=== PATIENT | female | born 1945 | race Caucasian/White ===

== ENCOUNTER 2022-04-20 01:55 | Inpatient (IN) | payer MEDICARE ==
[2022-04-20 02:46] LABS: Hemoglobin 13.7 g/dL (12.0-15.5); Mean Corpuscular HGB CONC 34.3 g/dL (32.0-36.0); Mean Corpuscular Hemoglobin 28.4 pg (27.0-33.0); Mean Corpuscular Volume 82.6 fl (81.6-98.3); Mean Platelet Volume 9.9 fl (7.4-10.4); Platelet Count 142 10x3/uL (150-450); RBC Distribution Width 14.8 % (11.5-14.5); Red Blood Cell (RBC) Count 4.83 10x6/uL (3.90-5.03); White Blood Cell (WBC) Count 6.5 10x3/uL (3.5-10.5)
[2022-04-20 02:47] LABS: MDiff Complete? YES; Manual Diff?? YES
[2022-04-20 02:48] LABS: Bilirubin Neg (Negative); Blood, Urine 10 (Negative); Clarity Cloudy (Clear); Glucose, Urine (Dipstick) Normal (Negative); Ketone, Urine 15 mg/dL (Negative); Leukocyte 100 (Negative); Nitrite Negative (Negative); Protein, Urine (Dipstick) 15 mg/dl (Neg-Trace)
[2022-04-20 02:57] LABS: ALT (SGPT) 27 U/L (8-55); AST (SGOT) 53 U/L (5-34); Albumin 3.3 g/dL (3.4-4.8); Alkaline Phosphatase 80 U/L (40-110); Anion Gap 18 mmol/L (10-20); BUN (Urea Nitrogen) 23 mg/dL (9.8-20.1); Bilirubin, Total 2.4 mg/dL (0.2-1.2); Calc. Creatinine Clearance 0 mL/min (70-130); Calcium 10.3 mg/dL (7.8-10.44); Carbon Dioxide 20 mmol/L (23-31); Chloride 101 mmol/L (98-107); Globulin 3.1 g/dL (2.4-3.5); Glucose 108 mg/dL (83-110); Lipase 62 U/L (8-78); Potassium 3.7 mmol/L (3.5-5.1); Protein, Total 6.4 g/dL (5.8-8.1); Sodium 135 mmol/L (136-145)
[2022-04-20 02:58] LABS: Bacteria/HPF 3+ HPF (None Seen); Squamous Epithelial 0-3 HPF (0-3)
[2022-04-20 02:59] LABS: Amphetamine Not Detected (NotDetected); Barbiturates Screen Not Detected (NotDetected); Benzodiazepine Screen Not Detected (NotDetected); Cocaine Metabolite Screen Not Detected (NotDetected); Methadone Not Detected (NotDetected); Methamphetamine Not Detected (NotDetected); Opiate Screen Not Detected (NotDetected); Oxycodone Screen Not Detected (NotDetected); Phencyclidine (PCP) Not Detected (NotDetected); THC/Cannabinoid Screen Not Detected (NotDetected); Tricyclic Screen Not Detected (NotDetected)
[2022-04-20 03:03] LABS: Acetaminophen Less than 10.0 mcg/mL (10.0-30.0); Alcohol Less than 10 mg/dL (Less than 10); CK (CPK) 77 U/L (29-168); Salicylate Less than 8.0 mg/dL (15.0-30.0)
[2022-04-20 03:10] LABS: Band 1 % (5-11); Eosinophils 5 % (0-10); Lymphocytes 29 % (21-51); Monocytes 10 % (0-10); Neutrophil 54 % (42-75); Reactive Lymphocytes 1 % (0-10)
[2022-04-20 03:11] LABS: Platelet Morphology Comment Appears Adequate
[2022-04-20] MEDS ORDERED: Ibuprofen 200 MG TAB ONE (03:59)
[2022-04-20] MEDS ORDERED: Cefepime 2 GM VIAL ONE (04:24)
[2022-04-20] MEDS ORDERED: Acetaminophen 325 MG TAB PO PRN (04:58)
[2022-04-20 09:04] VITALS: BMI 38.2
[2022-04-20] MEDS: Enoxaparin Sodium 40 MG/0.4 ML SYRINGE SC SCH (09:36)
[2022-04-20] MEDS: cefTRIAXone\\ROCEPHIN 1 GM in Sodium Chloride 0.9% 100 ML IVPB SCH (09:36)
[2022-04-20] MEDS ORDERED: Nystatin Powder 15 GM BOT TOP PRN (16:23)
[2022-04-20] MEDS ORDERED: Atorvastatin Calcium 40 MG TAB PO SCH (21:00)
[2022-04-21] MEDS: Ondansetron PF 4 MG/2 ML Vial IVP PRN (00:28)
[2022-04-21] MEDS ORDERED: Pantoprazole 40 MG VIAL IVP SCH (02:00)
[2022-04-21 04:46] LABS: Anion Gap 13 mmol/L (10-20); BUN (Urea Nitrogen) 16 mg/dL (9.8-20.1); Calc. Creatinine Clearance 104 mL/min (70-130); Calcium 8.9 mg/dL (7.8-10.44); Carbon Dioxide 25 mmol/L (23-31); Cardiac Risk 5.5 (Less than 4.5); Chloride 107 mmol/L (98-107); Cholesterol 122 mg/dl (< 200 Desired); Glucose 129 mg/dL (83-110); HDL Cholesterol 22 mg/dL (>60 Neg Risk); LDL Cholesterol, Calculated 84 mg/dL; Potassium 3.5 mmol/L (3.5-5.1); Sodium 141 mmol/L (136-145); Triglycerides 79 mg/dL (Less than 150)
[2022-04-21 04:48] LABS: #Eosinphils 0.1 10x3/uL (0.0-0.5); #Monocytes 0.6 10x3/uL (0.0-1.1); #Neutrophils 3.1 10x3/uL (1.5-8.4); %Basophils 0.4 % (0.0-2.0); %Eosinophils 2.4 % (0.0-6.0); %Lymphocytes 24.4 % (18.0-47.0); %Monocytes 11.4 % (0.0-10.0); Hemoglobin 12.2 g/dL (12.0-15.5); Mean Corpuscular Hemoglobin 28.7 pg (27.0-33.0); Mean Corpuscular Volume 84.5 fl (81.6-98.3); Mean Platelet Volume 10.3 fl (7.4-10.4); Red Blood Cell (RBC) Count 4.25 10x6/uL (3.90-5.03); White Blood Cell (WBC) Count 5.1 10x3/uL (3.5-10.5)
[2022-04-21 05:10] LABS: Free T4 (Free Thyroxine) 0.9 ng/dL (0.70-1.48)
[2022-04-21 06:22] LABS: Platelet Count 123 10x3/uL (150-450)
[2022-04-21] MEDS ORDERED: Mag-Al Plus 1200 MG/1200 MG/120 MG/30 ML UDCUP PO PRN (08:11)
[2022-04-21] MEDS: Aspirin 81 mg Enteric Coated Tablet PO SCH (08:53)
[2022-04-21] MEDS: cefTRIAXone\\ROCEPHIN 1 GM in Sodium Chloride 0.9% 100 ML IVPB SCH (08:53)
[2022-04-21] MEDS: Enoxaparin Sodium 40 MG/0.4 ML SYRINGE SC SCH (08:53)
[2022-04-21 14:19] LABS: Hemoglobin A1c 4.8 % (4.0-6.0)
[2022-04-21] MEDS: HYDROcodone/Acetaminophen 5/325 mg Tablet PO PRN ×2 (16:09→23:39)
[2022-04-22] MEDS: Enoxaparin Sodium 40 MG/0.4 ML SYRINGE SC SCH (08:47)
[2022-04-22] MEDS: Aspirin 81 mg Enteric Coated Tablet PO SCH (08:47)
[2022-04-22] MEDS: cefTRIAXone\\ROCEPHIN 1 GM in Sodium Chloride 0.9% 100 ML IVPB SCH (08:54)
[2022-04-22] MEDS ORDERED: Cipro 250 MG TAB PO SCH (09:15)
[2022-04-22] MEDS: Ondansetron PF 4 MG/2 ML Vial IVP PRN (20:36)
[2022-04-22] MEDS: HYDROcodone/Acetaminophen 5/325 mg Tablet PO PRN (22:44)
[2022-04-23] MEDS: Enoxaparin Sodium 40 MG/0.4 ML SYRINGE SC SCH (09:33)
[2022-04-23] MEDS: Lisinopril 20 MG TAB PO SCH (09:34)
[2022-04-23] MEDS: Amlodipine 5 MG TAB PO SCH (09:34)
[2022-04-23] MEDS: Aspirin 81 mg Enteric Coated Tablet PO SCH (09:34)
[2022-04-23] MEDS ORDERED: Lidocaine 5% Patch TD SCH (09:45)
[2022-04-23] MEDS: Cipro 250 MG TAB PO SCH (21:39)
[2022-04-23] MEDS: Gabapentin 300 MG CAP PO SCH (21:39)
[2022-04-23] MEDS: Transdermal Patch Removal TOP SCH (21:43)
[2022-04-24 04:08] LABS: #Eosinphils 0.2 10x3/uL (0.0-0.5); #Monocytes 0.7 10x3/uL (0.0-1.1); #Neutrophils 2.6 10x3/uL (1.5-8.4); %Basophils 0.7 % (0.0-2.0); %Eosinophils 2.9 % (0.0-6.0); %Lymphocytes 34.8 % (18.0-47.0); %Monocytes 13.6 % (0.0-10.0); %Neutrophils 47.6 % (40.0-75.0); Hemoglobin 12.6 g/dL (12.0-15.5); Mean Corpuscular HGB CONC 33.5 g/dL (32.0-36.0); Mean Corpuscular Hemoglobin 28.5 pg (27.0-33.0); Mean Corpuscular Volume 85.1 fl (81.6-98.3); RBC Distribution Width 15.2 % (11.5-14.5); Red Blood Cell (RBC) Count 4.42 10x6/uL (3.90-5.03); White Blood Cell (WBC) Count 5.4 10x3/uL (3.5-10.5)
[2022-04-24 04:09] LABS: Platelet Count 116 10x3/uL (150-450)
[2022-04-24 04:11] LABS: ALT (SGPT) 21 U/L (8-55); AST (SGOT) 38 U/L (5-34); Albumin 2.6 g/dL (3.4-4.8); Alkaline Phosphatase 68 U/L (40-110); Anion Gap 13 mmol/L (10-20); BUN (Urea Nitrogen) 11 mg/dL (9.8-20.1); Bilirubin, Total 1.3 mg/dL (0.2-1.2); Calc. Creatinine Clearance 126 mL/min (70-130); Calcium 8.9 mg/dL (7.8-10.44); Carbon Dioxide 26 mmol/L (23-31); Chloride 106 mmol/L (98-107); Globulin 2.9 g/dL (2.4-3.5); Glucose 98 mg/dL (83-110); Protein, Total 5.5 g/dL (5.8-8.1); Sodium 141 mmol/L (136-145)
[2022-04-24] MEDS: Cipro 250 MG TAB PO SCH ×2 (06:25→20:27)
[2022-04-24] MEDS: Aspirin 81 mg Enteric Coated Tablet PO SCH (09:27)
[2022-04-24] MEDS: Amlodipine 5 MG TAB PO SCH (09:27)
[2022-04-24] MEDS: Lidocaine 5% Patch TD SCH (09:27)
[2022-04-24] MEDS: Gabapentin 300 MG CAP PO SCH ×2 (09:27→20:27)
[2022-04-24] MEDS: Lisinopril 20 MG TAB PO SCH (09:28)
[2022-04-24] MEDS: HYDROcodone/Acetaminophen 5/325 mg Tablet PO PRN (18:17)
[2022-04-24] MEDS: Transdermal Patch Removal TOP SCH (20:34)
[2022-04-25] MEDS: Cipro 250 MG TAB PO SCH ×2 (05:34→20:06)
[2022-04-25] MEDS: Aspirin 81 mg Enteric Coated Tablet PO SCH (09:48)
[2022-04-25] MEDS: Lisinopril 20 MG TAB PO SCH (09:48)
[2022-04-25] MEDS: Gabapentin 300 MG CAP PO SCH ×2 (09:48→20:06)
[2022-04-25] MEDS: Lidocaine 5% Patch TD SCH (09:48)
[2022-04-25] MEDS: Amlodipine 5 MG TAB PO SCH (09:48)
[2022-04-25] MEDS: Transdermal Patch Removal TOP SCH (21:37)
[2022-04-26] MEDS: HYDROcodone/Acetaminophen 5/325 mg Tablet PO PRN ×2 (04:14→22:38)
[2022-04-26 04:36] LABS: #Eosinphils 0.2 10x3/uL (0.0-0.5); #Monocytes 0.8 10x3/uL (0.0-1.1); %Basophils 0.4 % (0.0-2.0); %Eosinophils 3.4 % (0.0-6.0); %Lymphocytes 28.2 % (18.0-47.0); %Monocytes 13.9 % (0.0-10.0); %Neutrophils 53.9 % (40.0-75.0); Hemoglobin 13.3 g/dL (12.0-15.5); Mean Corpuscular HGB CONC 33.5 g/dL (32.0-36.0); Mean Corpuscular Hemoglobin 28.7 pg (27.0-33.0); Mean Corpuscular Volume 85.6 fl (81.6-98.3); Mean Platelet Volume 9.7 fl (7.4-10.4); RBC Distribution Width 15.3 % (11.5-14.5); Red Blood Cell (RBC) Count 4.64 10x6/uL (3.90-5.03); White Blood Cell (WBC) Count 5.6 10x3/uL (3.5-10.5)
[2022-04-26 04:37] LABS: Platelet Count 126 10x3/uL (150-450)
[2022-04-26] MEDS: Gabapentin 300 MG CAP PO SCH ×2 (08:39→20:20)
[2022-04-26] MEDS: Lidocaine 5% Patch TD SCH ×2 (08:39→19:38)
[2022-04-26] MEDS: Aspirin 81 mg Enteric Coated Tablet PO SCH (08:39)
[2022-04-26] MEDS: Lisinopril 20 MG TAB PO SCH (08:39)
[2022-04-26] MEDS: Amlodipine 5 MG TAB PO SCH (08:41)
[2022-04-26] MEDS: Transdermal Patch Removal TOP SCH (22:00)
[2022-04-27] MEDS: Gabapentin 300 MG CAP PO SCH ×2 (08:23→21:16)
[2022-04-27] MEDS: Aspirin 81 mg Enteric Coated Tablet PO SCH (08:24)
[2022-04-27] MEDS: Amlodipine 5 MG TAB PO SCH (08:24)
[2022-04-27] MEDS: Lisinopril 20 MG TAB PO SCH (08:24)
[2022-04-27] MEDS: Lidocaine 5% Patch TD SCH (08:29)
[2022-04-27] MEDS ORDERED: predniSONE 50 MG TAB PO SCH ×4 (17:00→23:00)
[2022-04-27 18:32] LABS: Troponin I Less than 0.010 ng/mL (< 0.028)
[2022-04-27] MEDS: Enoxaparin Sodium 100 MG/ML SYRINGE SC SCH (21:14)
[2022-04-27] MEDS ORDERED: predniSONE 20 MG TAB PO SCH (23:00)
[2022-04-27] MEDS: HYDROcodone/Acetaminophen 5/325 mg Tablet PO PRN (23:14)
[2022-04-27] MEDS: Transdermal Patch Removal TOP SCH (23:19)
[2022-04-28] MEDS: predniSONE 50 MG TAB PO SCH ×2 (01:35→02:31)
[2022-04-28] MEDS ORDERED: Morphine 2 MG/ML VIAL SLOW IVP SCH (02:00)
[2022-04-28] MEDS: HYDROcodone/Acetaminophen 5/325 mg Tablet PO PRN ×2 (03:37→21:10)
[2022-04-28] MEDS ORDERED: diphenhydrAMINE 50 MG CAP PO SCH ×2 (05:00→07:00)
[2022-04-28] MEDS ORDERED: predniSONE 50 MG TAB PO SCH ×2 (05:00→07:00)
[2022-04-28 09:44] LABS: #Monocytes 0.2 10x3/uL (0.0-1.1); #Neutrophils 3.3 10x3/uL (1.5-8.4); %Basophils 0.2 % (0.0-2.0); %Lymphocytes 17.9 % (18.0-47.0); %Monocytes 4.2 % (0.0-10.0); %Neutrophils 77.5 % (40.0-75.0); Hemoglobin 13.7 g/dL (12.0-15.5); Mean Corpuscular HGB CONC 33.1 g/dL (32.0-36.0); Mean Corpuscular Hemoglobin 28.6 pg (27.0-33.0); Mean Corpuscular Volume 86.4 fl (81.6-98.3); Mean Platelet Volume 9.7 fl (7.4-10.4); Platelet Count 124 10x3/uL (150-450); RBC Distribution Width 14.6 % (11.5-14.5); Red Blood Cell (RBC) Count 4.79 10x6/uL (3.90-5.03); White Blood Cell (WBC) Count 4.2 10x3/uL (3.5-10.5)
[2022-04-28 10:06] LABS: INR-International Normal Ratio 1.2; PTT 36.5 sec (22.0-33.0); Prothrombin Time 12.4 sec (9.5-12.1)
[2022-04-28 10:08] LABS: ALT (SGPT) 25 U/L (8-55); AST (SGOT) 34 U/L (5-34); Albumin 2.9 g/dL (3.4-4.8); Alkaline Phosphatase 73 U/L (40-110); Anion Gap 10 mmol/L (10-20); BUN (Urea Nitrogen) 15 mg/dL (9.8-20.1); Bilirubin, Total 1.2 mg/dL (0.2-1.2); Calc. Creatinine Clearance 114 mL/min (70-130); Calcium 9.6 mg/dL (7.8-10.44); Carbon Dioxide 24 mmol/L (23-31); Chloride 104 mmol/L (98-107); Estimated GFR 91; Globulin 3.5 g/dL (2.4-3.5); Glucose 212 mg/dL (83-110); Magnesium 1.8 mg/dL (1.6-2.6); Potassium 4.2 mmol/L (3.5-5.1); Protein, Total 6.4 g/dL (5.8-8.1); Sodium 134 mmol/L (136-145)
[2022-04-28] MEDS: Amlodipine 5 MG TAB PO SCH (10:08)
[2022-04-28] MEDS: Lidocaine 5% Patch TD SCH (10:09)
[2022-04-28] MEDS: Lisinopril 20 MG TAB PO SCH (10:09)
[2022-04-28] MEDS: Aspirin 81 mg Enteric Coated Tablet PO SCH (10:09)
[2022-04-28] MEDS: Gabapentin 300 MG CAP PO SCH ×2 (10:09→21:13)
[2022-04-28] MEDS: Enoxaparin Sodium 100 MG/ML SYRINGE SC SCH (10:11)
[2022-04-28] MEDS ORDERED: Furosemide 40 MG/4 ML VIAL SLOW IVP SCH (12:00)
[2022-04-28] MEDS ORDERED: Iopamidol 370 76% 100 ML VIAL ONE (12:59)
[2022-04-28 13:05] LABS: Hemoglobin A1c 4.9 % (4.0-6.0)
[2022-04-28] MEDS: Transdermal Patch Removal TOP SCH (21:18)
[2022-04-29 05:54] LABS: Hemoglobin 12.3 g/dL (12.0-15.5); Mean Corpuscular HGB CONC 33.2 g/dL (32.0-36.0); Mean Corpuscular Hemoglobin 28.5 pg (27.0-33.0); Mean Corpuscular Volume 85.9 fl (81.6-98.3); Mean Platelet Volume 9.9 fl (7.4-10.4); RBC Distribution Width 15.1 % (11.5-14.5); Red Blood Cell (RBC) Count 4.32 10x6/uL (3.90-5.03); White Blood Cell (WBC) Count 7.5 10x3/uL (3.5-10.5)
[2022-04-29 05:56] LABS: Platelet Count 144 10x3/uL (150-450)
[2022-04-29 06:02] LABS: ALT (SGPT) 19 U/L (8-55); AST (SGOT) 29 U/L (5-34); Albumin 2.4 g/dL (3.4-4.8); Alkaline Phosphatase 62 U/L (40-110); Anion Gap 12 mmol/L (10-20); BUN (Urea Nitrogen) 18 mg/dL (9.8-20.1); Bilirubin, Direct 0.4 mg/dL (0.1-0.3); Bilirubin, Total 0.6 mg/dL (0.2-1.2); Calc. Creatinine Clearance 107 mL/min (70-130); Calcium 8.9 mg/dL (7.8-10.44); Carbon Dioxide 26 mmol/L (23-31); Chloride 107 mmol/L (98-107); Cholesterol 116 mg/dl (< 200 Desired); Estimated GFR 90; Glucose 129 mg/dL (83-110); HDL Cholesterol 29 mg/dL (>60 Neg Risk); LDL Cholesterol, Calculated 75 mg/dL; Magnesium 1.8 mg/dL (1.6-2.6); Potassium 4.2 mmol/L (3.5-5.1); Protein, Total 5.3 g/dL (5.8-8.1); Sodium 141 mmol/L (136-145); Triglycerides 60 mg/dL (Less than 150)
[2022-04-29 06:19] LABS: MDiff Complete? YES
[2022-04-29 06:22] LABS: Band 1 % (5-11); Eosinophils 1 % (0-10); Lymphocytes 19 % (21-51); Monocytes 12 % (0-10); Neutrophil 66 % (42-75); Reactive Lymphocytes 1 % (0-10)
[2022-04-29 06:23] LABS: Platelet Morphology Comment Appears Adequate; RBC Morphology Normal
[2022-04-29 08:04] VITALS: TEMP 98.1
[2022-04-29] MEDS ORDERED: Enoxaparin Sodium 40 MG/0.4 ML SYRINGE SC SCH (09:00)
[2022-04-29] MEDS ORDERED: Furosemide 40 MG/4 ML VIAL SLOW IVP SCH (09:00)
[2022-04-29] MEDS ORDERED: Azithromycin 250 MG TAB PO SCH (09:30)
[2022-04-29] MEDS: Gabapentin 300 MG CAP PO SCH (10:18)
[2022-04-29] MEDS: Lisinopril 20 MG TAB PO SCH (10:18)
[2022-04-29] MEDS: Aspirin 81 mg Enteric Coated Tablet PO SCH (10:18)
[2022-04-29] MEDS: Amlodipine 5 MG TAB PO SCH (10:19)
[2022-04-29] MEDS: Lidocaine 5% Patch TD SCH (10:19)
[2022-04-29 11:56] VITALS: BP 113/51
[2022-04-30] MEDS ORDERED: Furosemide 40 MG TAB PO SCH (07:30)
== END 2022-04-29 13:45 | DRG 689 ==
LOC: CSHERS 01:55 → SUATTDRO 01:55 → UNDOADMIN 04:15 → CSHTELE 04:15 → OBSVTOIN 04:15 → INTOOBSV 04:15 → UNDOADMIN 08:51 → CSHTELE 08:51 → UNDODISIN 04-22 17:05
PROVIDERS: ADMIT Family Medicine; ATTEND Family Medicine
DX: N39.0 Urinary tract infection, site not specified (principal); G93.41 Metabolic encephalopathy; J96.01 Acute respiratory failure with hypoxia; J81.1 Chronic pulmonary edema; E87.1 Hypo-osmolality and hyponatremia; I10 Essential (primary) hypertension; M19.90 Unspecified osteoarthritis, unspecified site; E03.9 Hypothyroidism, unspecified; F17.210 Nicotine dependence, cigarettes, uncomplicated; E66.9 Obesity, unspecified; R53.81 Other malaise; Z20.822 Contact with and (suspected) exposure to COVID-19; B96.20 Unspecified Escherichia coli [E. coli] as the cause of diseases classified elsewhere; K70.30 Alcoholic cirrhosis of liver without ascites; F03.90 Unspecified dementia, unspecified severity, without behavioral disturbance, psychotic disturbance, mood disturbance, and anxiety; D69.6 Thrombocytopenia, unspecified; Z90.710 Acquired absence of both cervix and uterus; Z88.0 Allergy status to penicillin; Z88.8 Allergy status to other drugs, medicaments and biological substances; Z68.38 Body mass index [BMI] 38.0-38.9, adult; Z90.49 Acquired absence of other specified parts of digestive tract; Z88.5 Allergy status to narcotic agent
CPT/HCPCS: 36415; 36416; 51701; 70450; 70551; 71045; 71275; 72020; 72100; 80048; 80053; 80061; 80076; 80306; 80307; 81003; 81015; 82140; 82550; 82607; 82746; 83036; 83690; 83735; 83880; 84439; 84443; 84481; 84484; 85025; 85379; 85610; 85730; 86850; 86900; 86901; 87040; 87077; 87086; 87186; 93005; 93010; 93306; 93970; 94760; 96365; 96372; 96375; 96376; C9113; G0378; J0692; J0696; J1650; J1940; J2405; J3490; J7512; Q9967; U0003; U0005

== ENCOUNTER 2022-05-12 07:16 | Inpatient (IN) | payer MEDICARE ==
[2022-05-12 08:29] LABS: SARS-CoV-2 NAA Rapid Test DETECTED (NotDetected)
[2022-05-12] MEDS ORDERED: Cefepime 2 GM VIAL ONE (08:29)
[2022-05-12 08:30] LABS: INR-International Normal Ratio 1.3; PTT 26.3 sec (22.0-33.0)
[2022-05-12 08:36] LABS: ALT (SGPT) 50 U/L (8-55); AST (SGOT) 84 U/L (5-34); Albumin 3.3 g/dL (3.4-4.8); Alkaline Phosphatase 96 U/L (40-110); Anion Gap 19 mmol/L (10-20); BUN (Urea Nitrogen) 35 mg/dL (9.8-20.1); Bilirubin, Total 3.3 mg/dL (0.2-1.2); CK (CPK) 117 U/L (29-168); Calc. Creatinine Clearance 0 mL/min (70-130); Calcium 9.7 mg/dL (7.8-10.44); Carbon Dioxide 24 mmol/L (23-31); Chloride 108 mmol/L (98-107); Estimated GFR 65; Globulin 4.3 g/dL (2.4-3.5); Glucose 119 mg/dL (83-110); Lipase 114 U/L (8-78); Protein, Total 7.6 g/dL (5.8-8.1); Sodium 147 mmol/L (136-145)
[2022-05-12 08:50] LABS: #Monocytes 1.2 10x3/uL (0.0-1.1); %Basophils 0.3 % (0.0-2.0); %Eosinophils 0.3 % (0.0-6.0); %Lymphocytes 12.1 % (18.0-47.0); %Neutrophils 73.5 % (40.0-75.0); Hemoglobin 13.6 g/dL (12.0-15.5); Mean Corpuscular HGB CONC 33.2 g/dL (32.0-36.0); Mean Corpuscular Volume 84.4 fl (81.6-98.3); Mean Platelet Volume 10.2 fl (7.4-10.4); Platelet Count 251 10x3/uL (150-450); RBC Distribution Width 14.8 % (11.5-14.5); Red Blood Cell (RBC) Count 4.86 10x6/uL (3.90-5.03); White Blood Cell (WBC) Count 9.5 10x3/uL (3.5-10.5)
[2022-05-12 09:14] LABS: Bilirubin Neg (Negative); Blood, Urine 150 (Negative); Clarity Cloudy (Clear); Glucose, Urine (Dipstick) Normal (Negative); Ketone, Urine 15 mg/dL (Negative); Leukocyte 500 (Negative); Nitrite Negative (Negative); Protein, Urine (Dipstick) 30 mg/dl (Neg-Trace)
[2022-05-12] MEDS ORDERED: Dexamethasone 10 MG/ML VIAL ONE (09:29)
[2022-05-12 09:30] LABS: Bacteria/HPF 2+ HPF (None Seen); Transitional Epithelial 0-3 HPF (None Seen); WBC/HPF 21-50 HPF (0-3)
[2022-05-12] MEDS ORDERED: Benzonatate 100 MG CAP PO PRN (10:44)
[2022-05-12] MEDS ORDERED: Ondansetron ODT 4 MG TAB PO PRN (10:44)
[2022-05-12] MEDS ORDERED: Acetaminophen 650 MG Suppository PR PRN (10:44)
[2022-05-12] MEDS ORDERED: Guaifenesin DM 100-10/5 ML UDCUP PO PRN (10:44)
[2022-05-12] MEDS ORDERED: HumaLOG 300 UNITS/3 ML VIAL SC PRN (10:53)
[2022-05-12] MEDS ORDERED: Dextrose 50% Abboject 50 ML SYRINGE SLOW IVP PRN (10:53)
[2022-05-12] MEDS ORDERED: Dextrose 5% in Water 1,000 ML IV PRN (10:53)
[2022-05-12] MEDS ORDERED: Ipratropium Oral Inhaler INH PRN (10:56)
[2022-05-12] MEDS ORDERED: VANCOMYCIN 1.75 GM/350 ML BAG 1.75 GM in Premix Bag 1 BAG IVPB SCH (11:00)
[2022-05-12 11:55] LABS: Lactic Acid 1.8 mmol/L (0.5-2.2)
[2022-05-12] MEDS ORDERED: Albuterol 200 PUFF (6.7GM INHALER) INH SCH (13:00)
[2022-05-12] MEDS: Lactated Ringer's 1,000 ML IV SCH ×3 (14:00→19:30)
[2022-05-12] MEDS: Nicotine 14 MG PATCH TD SCH (14:06)
[2022-05-12 14:09] LABS: Lactic Acid 2.1 mmol/L (0.5-2.2)
[2022-05-12] MEDS ORDERED: Ventolin HFA Inhaler 60 PUFF INHALER INH SCH (14:30)
[2022-05-12 18:14] LABS: Sodium 142 mmol/L (136-145)
[2022-05-12] MEDS: Ventolin HFA Inhaler 60 PUFF INHALER INH SCH (19:15)
[2022-05-12 20:32] LABS: Lactic Acid 4.9 mmol/L (0.5-2.2)
[2022-05-12] MEDS ORDERED: Sodium Chloride 0.9% 1,000 ML IV SCH (22:30)
[2022-05-13] MEDS: Lactated Ringer's 1,000 ML IV SCH ×2 (00:15→13:00)
[2022-05-13] MEDS ORDERED: Lactated Ringer's 1,000 ML IV SCH (01:00)
[2022-05-13] MEDS ORDERED: Vancomycin 1.5 GRAM/300 ML BAG IVPB SCH (01:00)
[2022-05-13] MEDS: Cefepime 2 GM in Sodium Chloride 0.9% 100 ML IVPB SCH ×2 (01:17→12:57)
[2022-05-13 01:22] LABS: #Monocytes 0.8 10x3/uL (0.0-1.1); #Neutrophils 5.1 10x3/uL (1.5-8.4); %Basophils 0.1 % (0.0-2.0); %Lymphocytes 11.2 % (18.0-47.0); %Monocytes 11.4 % (0.0-10.0); %Neutrophils 75.4 % (40.0-75.0); Hemoglobin 13.2 g/dL (12.0-15.5); Mean Corpuscular HGB CONC 33.4 g/dL (32.0-36.0); Mean Corpuscular Hemoglobin 27.7 pg (27.0-33.0); Mean Platelet Volume 9.7 fl (7.4-10.4); Platelet Count 198 10x3/uL (150-450); RBC Distribution Width 14.9 % (11.5-14.5); Red Blood Cell (RBC) Count 4.76 10x6/uL (3.90-5.03); White Blood Cell (WBC) Count 6.8 10x3/uL (3.5-10.5)
[2022-05-13 01:36] LABS: ALT (SGPT) 44 U/L (8-55); AST (SGOT) 65 U/L (5-34); Alkaline Phosphatase 92 U/L (40-110); Anion Gap 16 mmol/L (10-20); BUN (Urea Nitrogen) 24 mg/dL (9.8-20.1); Bilirubin, Total 2.9 mg/dL (0.2-1.2); Calc. Creatinine Clearance 91 mL/min (70-130); Calcium 9.1 mg/dL (7.8-10.44); Carbon Dioxide 21 mmol/L (23-31); Chloride 109 mmol/L (98-107); Estimated GFR 85; Globulin 3.6 g/dL (2.4-3.5); Glucose 126 mg/dL (83-110); Magnesium 1.6 mg/dL (1.6-2.6); Protein, Total 6.6 g/dL (5.8-8.1); Sodium 143 mmol/L (136-145)
[2022-05-13] MEDS ORDERED: Ziprasidone 20 MG VIAL ONE (01:57)
[2022-05-13 01:58] LABS: Potassium 2.9 mmol/L (3.5-5.1)
[2022-05-13] MEDS ORDERED: Sterile Water 10 ML ONE (02:02)
[2022-05-13] MEDS: VANCOMYCIN 1.75 GM/350 ML BAG 1.75 GM in Premix Bag 1 BAG IVPB SCH (02:05)
[2022-05-13] MEDS: Ventolin HFA Inhaler 60 PUFF INHALER INH SCH ×4 (02:20→19:06)
[2022-05-13] MEDS ORDERED: Magnesium Sulfate 1 GM/2 ML VIAL IM SCH (03:00)
[2022-05-13 03:04] LABS: Lactic Acid 3.6 mmol/L (0.5-2.2)
[2022-05-13] MEDS ORDERED: diphenhydrAMINE 50 MG/ML VIAL IVP SCH (03:30)
[2022-05-13] MEDS ORDERED: Famotidine/PF 20 mg/2ml Vial SLOW IVP SCH (03:30)
[2022-05-13] MEDS: Potassium Chloride 20 MEQ in Premix Bag 1 BAG IVPB SCH ×3 (03:35→11:30)
[2022-05-13] MEDS: methylPREDNISolone Sod Succ 40 MG VIAL IVP PRN ×2 (03:36→07:39)
[2022-05-13 05:52] LABS: Sodium 146 mmol/L (136-145)
[2022-05-13] MEDS ORDERED: Dexamethasone 4 MG TAB PO SCH (08:00)
[2022-05-13] MEDS: Enoxaparin Sodium 40 MG/0.4 ML SYRINGE SC SCH (11:30)
[2022-05-13] MEDS: Zinc Sulfate 220 MG CAP PO SCH (11:30)
[2022-05-13] MEDS: Cholecalciferol (Vitamin D3) 400 UNITS TAB PO SCH (11:31)
[2022-05-13] MEDS: Ascorbic Acid 500 mg Chewable Tablet PO SCH (11:31)
[2022-05-13] MEDS: Nicotine 14 MG PATCH TD SCH (11:33)
[2022-05-13 12:17] LABS: Anion Gap 14 mmol/L (10-20); BUN (Urea Nitrogen) 12 mg/dL (9.8-20.1); Calc. Creatinine Clearance 100 mL/min (70-130); Calcium 6.4 mg/dL (7.8-10.44); Carbon Dioxide 23 mmol/L (23-31); Chloride 109 mmol/L (98-107); Estimated GFR 90; Glucose 125 mg/dL (83-110); Potassium 3.5 mmol/L (3.5-5.1); Sodium 142 mmol/L (136-145)
[2022-05-13] MEDS ORDERED: Iopamidol 300 61% 100 ML VIAL FS ONE (13:52)
[2022-05-13] MEDS ORDERED: Iopamidol 370 76% 100 ML VIAL ONE (13:55)
[2022-05-13 15:06] VITALS: BMI 35.0
[2022-05-13] MEDS: Propranolol 10 MG TAB PO SCH (20:49)
[2022-05-14] MEDS: Cefepime 2 GM in Sodium Chloride 0.9% 100 ML IVPB SCH ×2 (00:32→12:14)
[2022-05-14] MEDS: Ventolin HFA Inhaler 60 PUFF INHALER INH SCH ×4 (00:38→18:45)
[2022-05-14 01:15] LABS: Vancomycin, Trough 13.8 ug/mL
[2022-05-14] MEDS ORDERED: VANCOMYCIN 2 GRAM/400 ML BAG 2 GM in Premix Bag 1 BAG IVPB SCH (02:30)
[2022-05-14 03:33] LABS: Hemoglobin 12.8 g/dL (12.0-15.5); Mean Corpuscular HGB CONC 33.3 g/dL (32.0-36.0); Mean Corpuscular Hemoglobin 28.1 pg (27.0-33.0); Mean Corpuscular Volume 84.2 fl (81.6-98.3); Mean Platelet Volume 9.7 fl (7.4-10.4); Platelet Count 189 10x3/uL (150-450); RBC Distribution Width 15.8 % (11.5-14.5); Red Blood Cell (RBC) Count 4.56 10x6/uL (3.90-5.03)
[2022-05-14 03:47] LABS: Lactic Acid 2.1 mmol/L (0.5-2.2)
[2022-05-14 04:05] LABS: Anion Gap 14 mmol/L (10-20); BUN (Urea Nitrogen) 18 mg/dL (9.8-20.1); Calc. Creatinine Clearance 89 mL/min (70-130); Carbon Dioxide 21 mmol/L (23-31); Chloride 114 mmol/L (98-107); Estimated GFR 82; Glucose 117 mg/dL (83-110); Magnesium 1.8 mg/dL (1.6-2.6); Potassium 3.5 mmol/L (3.5-5.1); Sodium 145 mmol/L (136-145)
[2022-05-14] MEDS: Lactated Ringer's 1,000 ML IV SCH ×2 (05:00→05:47)
[2022-05-14] MEDS: Propranolol 10 MG TAB PO SCH ×3 (05:46→20:41)
[2022-05-14] MEDS: VANCOMYCIN 1.75 GM/350 ML BAG 1.75 GM in Premix Bag 1 BAG IVPB SCH (06:45)
[2022-05-14] MEDS: Ascorbic Acid 500 mg Chewable Tablet PO SCH (08:30)
[2022-05-14] MEDS: Zinc Sulfate 220 MG CAP PO SCH (08:30)
[2022-05-14] MEDS: Enoxaparin Sodium 40 MG/0.4 ML SYRINGE SC SCH (08:30)
[2022-05-14] MEDS: Cholecalciferol (Vitamin D3) 400 UNITS TAB PO SCH (08:31)
[2022-05-14] MEDS: Aspirin 81 mg Enteric Coated Tablet PO SCH (08:31)
[2022-05-14] MEDS: Dexamethasone 4 mg/ml Vial SLOW IVP SCH (08:32)
[2022-05-14] MEDS: Nicotine 14 MG PATCH TD SCH (10:02)
[2022-05-15] MEDS: Cefepime 2 GM in Sodium Chloride 0.9% 100 ML IVPB SCH (00:16)
[2022-05-15] MEDS: Ventolin HFA Inhaler 60 PUFF INHALER INH SCH ×4 (01:00→19:00)
[2022-05-15] MEDS ORDERED: Vancomycin HCl 1 GM in Sodium Chloride 0.9% 250 ML 250 ML IVPB SCH (02:00)
[2022-05-15] MEDS: Lactated Ringer's 1,000 ML IV SCH ×2 (06:57→22:56)
[2022-05-15] MEDS: Propranolol 10 MG TAB PO SCH ×3 (07:09→22:57)
[2022-05-15] MEDS: Aspirin 81 mg Enteric Coated Tablet PO SCH (10:36)
[2022-05-15] MEDS: Cholecalciferol (Vitamin D3) 400 UNITS TAB PO SCH (10:36)
[2022-05-15] MEDS: Zinc Sulfate 220 MG CAP PO SCH (10:36)
[2022-05-15] MEDS: Enoxaparin Sodium 40 MG/0.4 ML SYRINGE SC SCH (10:36)
[2022-05-15] MEDS: Ascorbic Acid 500 mg Chewable Tablet PO SCH (10:36)
[2022-05-15] MEDS: Dexamethasone 4 mg/ml Vial SLOW IVP SCH (10:37)
[2022-05-15] MEDS: Nicotine 14 MG PATCH TD SCH (10:47)
[2022-05-16] MEDS: Ventolin HFA Inhaler 60 PUFF INHALER INH SCH ×2 (01:00→11:18)
[2022-05-16 04:22] LABS: Anion Gap 12 mmol/L (10-20); BUN (Urea Nitrogen) 21 mg/dL (9.8-20.1); Calc. Creatinine Clearance 100 mL/min (70-130); Calcium 8.9 mg/dL (7.8-10.44); Carbon Dioxide 25 mmol/L (23-31); Chloride 111 mmol/L (98-107); Estimated GFR 90; Glucose 111 mg/dL (83-110); Potassium 3.4 mmol/L (3.5-5.1); Sodium 145 mmol/L (136-145)
[2022-05-16] MEDS ORDERED: Potassium Chloride 20 MEQ TAB PO SCH ×2 (05:30→08:00)
[2022-05-16] MEDS: Propranolol 10 MG TAB PO SCH ×3 (05:31→22:26)
[2022-05-16] MEDS: Lactated Ringer's 1,000 ML IV SCH ×2 (05:31→21:46)
[2022-05-16 06:16] LABS: Magnesium 1.7 mg/dL (1.6-2.6)
[2022-05-16] MEDS: hydrALAZINE 20 MG/ML VIAL SLOW IVP PRN (06:42)
[2022-05-16] MEDS ORDERED: Magnesium Oxide 400 MG TAB PO SCH (08:00)
[2022-05-16] MEDS: Enoxaparin Sodium 40 MG/0.4 ML SYRINGE SC SCH (09:42)
[2022-05-16] MEDS: Lisinopril 20 MG TAB PO SCH (09:44)
[2022-05-16] MEDS: Ascorbic Acid 500 mg Chewable Tablet PO SCH (09:44)
[2022-05-16] MEDS: Cholecalciferol (Vitamin D3) 400 UNITS TAB PO SCH (09:45)
[2022-05-16] MEDS: Aspirin 81 mg Enteric Coated Tablet PO SCH (09:46)
[2022-05-16] MEDS: Furosemide 40 MG TAB PO SCH (09:46)
[2022-05-16] MEDS: Amlodipine 5 MG TAB PO SCH (09:50)
[2022-05-16] MEDS: Zinc Sulfate 220 MG CAP PO SCH (09:50)
[2022-05-16] MEDS: Dexamethasone 4 mg/ml Vial SLOW IVP SCH (09:50)
[2022-05-16] MEDS: Nicotine 14 MG PATCH TD SCH (10:50)
[2022-05-16] MEDS: HumaLOG 300 UNITS/3 ML VIAL SC PRN (16:29)
[2022-05-17] MEDS: hydrALAZINE 20 MG/ML VIAL SLOW IVP PRN (00:22)
[2022-05-17 04:02] LABS: Anion Gap 12 mmol/L (10-20); BUN (Urea Nitrogen) 19 mg/dL (9.8-20.1); Calc. Creatinine Clearance 106 mL/min (70-130); Carbon Dioxide 25 mmol/L (23-31); Chloride 112 mmol/L (98-107); Estimated GFR 91; Glucose 140 mg/dL (83-110); Potassium 3.7 mmol/L (3.5-5.1); Sodium 145 mmol/L (136-145)
[2022-05-17] MEDS: Propranolol 10 MG TAB PO SCH ×2 (06:54→14:00)
[2022-05-17] MEDS: Cholecalciferol (Vitamin D3) 400 UNITS TAB PO SCH (11:07)
[2022-05-17] MEDS: Ascorbic Acid 500 mg Chewable Tablet PO SCH (11:07)
[2022-05-17] MEDS: Dexamethasone 4 mg/ml Vial SLOW IVP SCH (11:07)
[2022-05-17] MEDS: Furosemide 40 MG TAB PO SCH (11:07)
[2022-05-17] MEDS: Lisinopril 20 MG TAB PO SCH (11:08)
[2022-05-17] MEDS: Amlodipine 5 MG TAB PO SCH (11:08)
[2022-05-17] MEDS: Zinc Sulfate 220 MG CAP PO SCH (11:08)
[2022-05-17] MEDS: Enoxaparin Sodium 40 MG/0.4 ML SYRINGE SC SCH (11:08)
[2022-05-17] MEDS: Aspirin 81 mg Enteric Coated Tablet PO SCH (11:08)
[2022-05-17] MEDS: Nicotine 14 MG PATCH TD SCH (11:11)
[2022-05-17 13:19] LABS: Mean Corpuscular HGB CONC 33.7 g/dL (32.0-36.0); Mean Corpuscular Hemoglobin 27.9 pg (27.0-33.0); Mean Corpuscular Volume 82.7 fl (81.6-98.3); Mean Platelet Volume 9.6 fl (7.4-10.4); Platelet Count 149 10x3/uL (150-450); RBC Distribution Width 17.2 % (11.5-14.5); Red Blood Cell (RBC) Count 5.38 10x6/uL (3.90-5.03); White Blood Cell (WBC) Count 8.2 10x3/uL (3.5-10.5)
[2022-05-18] MEDS: Propranolol 10 MG TAB PO SCH ×3 (00:02→14:00)
[2022-05-18] MEDS: hydrALAZINE 20 MG/ML VIAL SLOW IVP PRN (08:58)
[2022-05-18] MEDS: Furosemide 40 MG TAB PO SCH (10:00)
[2022-05-18] MEDS: Cholecalciferol (Vitamin D3) 400 UNITS TAB PO SCH (10:00)
[2022-05-18] MEDS: Zinc Sulfate 220 MG CAP PO SCH (10:00)
[2022-05-18] MEDS: Lisinopril 20 MG TAB PO SCH (10:00)
[2022-05-18] MEDS: Amlodipine 5 MG TAB PO SCH (10:00)
[2022-05-18] MEDS: Aspirin 81 mg Enteric Coated Tablet PO SCH (10:00)
[2022-05-18] MEDS: Ascorbic Acid 500 mg Chewable Tablet PO SCH (10:00)
[2022-05-18] MEDS: Enalaprilat Dihydrate 1.25 MG/ML VIAL SLOW IVP SCH ×3 (12:15→18:30)
[2022-05-18] MEDS ORDERED: hydrALAZINE 20 MG/ML VIAL SLOW IVP PRN (12:35)
[2022-05-18] MEDS: Enoxaparin Sodium 40 MG/0.4 ML SYRINGE SC SCH (15:19)
[2022-05-18] MEDS: Dextrose 5 %-0.45 % NaCl 1,000 ML IV SCH (15:20)
[2022-05-18] MEDS: Nicotine 14 MG PATCH TD SCH (15:20)
[2022-05-19] MEDS: Rifaximin 550 MG TAB PO SCH ×3 (00:08→23:12)
[2022-05-19] MEDS: Propranolol 10 MG TAB PO SCH ×4 (00:08→23:12)
[2022-05-19] MEDS: Enalaprilat Dihydrate 1.25 MG/ML VIAL SLOW IVP SCH ×2 (05:58→05:59)
[2022-05-19] MEDS: Dextrose 5 %-0.45 % NaCl 1,000 ML IV SCH ×2 (06:00→17:24)
[2022-05-19 06:48] LABS: ALT (SGPT) 70 U/L (8-55); AST (SGOT) 61 U/L (5-34); Albumin 2.4 g/dL (3.4-4.8); Alkaline Phosphatase 101 U/L (40-110); Anion Gap 10 mmol/L (10-20); BUN (Urea Nitrogen) 30 mg/dL (9.8-20.1); Bilirubin, Total 3.4 mg/dL (0.2-1.2); Calc. Creatinine Clearance 101 mL/min (70-130); Calcium 8.4 mg/dL (7.8-10.44); Carbon Dioxide 25 mmol/L (23-31); Chloride 116 mmol/L (98-107); Estimated GFR 90; Glucose 150 mg/dL (83-110); Platelet Count 123 10x3/uL (150-450); Potassium 3.4 mmol/L (3.5-5.1); Protein, Total 5.4 g/dL (5.8-8.1); Sodium 148 mmol/L (136-145)
[2022-05-19 06:58] LABS: #Monocytes 0.9 10x3/uL (0.0-1.1); #Neutrophils 5.4 10x3/uL (1.5-8.4); %Basophils 0.1 % (0.0-2.0); %Eosinophils 0.1 % (0.0-6.0); %Lymphocytes 15.5 % (18.0-47.0); %Monocytes 12.1 % (0.0-10.0); %Neutrophils 70.8 % (40.0-75.0); Hemoglobin 14.7 g/dL (12.0-15.5); Mean Corpuscular HGB CONC 33.9 g/dL (32.0-36.0); Mean Corpuscular Hemoglobin 28.3 pg (27.0-33.0); Mean Corpuscular Volume 83.4 fl (81.6-98.3); Mean Platelet Volume 9.7 fl (7.4-10.4); RBC Distribution Width 17.7 % (11.5-14.5); Red Blood Cell (RBC) Count 5.19 10x6/uL (3.90-5.03); White Blood Cell (WBC) Count 7.6 10x3/uL (3.5-10.5)
[2022-05-19] MEDS: Nicotine 14 MG PATCH TD SCH (10:49)
[2022-05-19] MEDS: Amlodipine 5 MG TAB PO SCH (12:39)
[2022-05-19] MEDS: Aspirin 81 mg Enteric Coated Tablet PO SCH (12:40)
[2022-05-19] MEDS: Ascorbic Acid 500 mg Chewable Tablet PO SCH (12:40)
[2022-05-19] MEDS: Cholecalciferol (Vitamin D3) 400 UNITS TAB PO SCH (12:40)
[2022-05-19] MEDS: Enoxaparin Sodium 40 MG/0.4 ML SYRINGE SC SCH (12:40)
[2022-05-19] MEDS: Lisinopril 20 MG TAB PO SCH (12:41)
[2022-05-19] MEDS: Furosemide 40 MG TAB PO SCH (12:41)
[2022-05-19] MEDS: Zinc Sulfate 220 MG CAP PO SCH (12:42)
[2022-05-20] MEDS: Propranolol 10 MG TAB PO SCH (05:43)
[2022-05-20] MEDS: Dextrose 5 %-0.45 % NaCl 1,000 ML IV SCH ×2 (06:10→17:55)
[2022-05-20] MEDS: Nicotine 14 MG PATCH TD SCH (11:08)
[2022-05-20] MEDS: Ascorbic Acid 500 mg Chewable Tablet PO SCH (11:23)
[2022-05-20] MEDS: Amlodipine 5 MG TAB PO SCH (11:23)
[2022-05-20] MEDS: Enoxaparin Sodium 40 MG/0.4 ML SYRINGE SC SCH (11:24)
[2022-05-20] MEDS: Cholecalciferol (Vitamin D3) 400 UNITS TAB PO SCH (11:24)
[2022-05-20] MEDS: Aspirin 81 mg Enteric Coated Tablet PO SCH (11:24)
[2022-05-20] MEDS: Lisinopril 20 MG TAB PO SCH (11:46)
[2022-05-20] MEDS: Furosemide 40 MG TAB PO SCH (11:46)
[2022-05-20] MEDS: Zinc Sulfate 220 MG CAP PO SCH (11:47)
[2022-05-20] MEDS: Rifaximin 550 MG TAB PO SCH ×2 (11:47→22:29)
[2022-05-20] MEDS: Ondansetron PF 4 MG/2 ML Vial IVP PRN (23:25)
[2022-05-20] MEDS: Morphine 2 MG/ML VIAL SLOW IVP PRN (23:36)
[2022-05-21] MEDS: Dextrose 5 %-0.45 % NaCl 1,000 ML IV SCH ×2 (04:33→19:30)
[2022-05-21] MEDS: Ondansetron PF 4 MG/2 ML Vial IVP PRN ×2 (06:13→20:54)
[2022-05-21] MEDS: Enoxaparin Sodium 40 MG/0.4 ML SYRINGE SC SCH (08:51)
[2022-05-21] MEDS: Aspirin 81 mg Enteric Coated Tablet PO SCH (08:51)
[2022-05-21] MEDS: Nicotine 14 MG PATCH TD SCH (13:34)
[2022-05-21] MEDS ORDERED: Famotidine/PF 20 mg/2ml Vial SLOW IVP SCH (20:30)
[2022-05-21] MEDS: Morphine 2 MG/ML VIAL SLOW IVP PRN (22:12)
[2022-05-22] MEDS: Ondansetron PF 4 MG/2 ML Vial IVP PRN (04:17)
[2022-05-22 04:27] LABS: Anion Gap 6 mmol/L (10-20); BUN (Urea Nitrogen) 22 mg/dL (9.8-20.1); Calc. Creatinine Clearance 103 mL/min (70-130); Calcium 7.6 mg/dL (7.8-10.44); Carbon Dioxide 27 mmol/L (23-31); Chloride 116 mmol/L (98-107); Estimated GFR 91; Glucose 115 mg/dL (83-110); Potassium 3.6 mmol/L (3.5-5.1); Sodium 145 mmol/L (136-145)
[2022-05-22] MEDS: Rifaximin 550 MG TAB PO SCH ×3 (04:48→22:12)
[2022-05-22] MEDS: Aspirin 81 mg Enteric Coated Tablet PO SCH (09:01)
[2022-05-22] MEDS: Enoxaparin Sodium 40 MG/0.4 ML SYRINGE SC SCH (09:01)
[2022-05-22] MEDS: Dextrose 5 %-0.45 % NaCl 1,000 ML IV SCH ×2 (09:02→22:11)
[2022-05-22] MEDS: Nicotine 7 MG PATCH TD SCH (14:12)
[2022-05-23] MEDS: Morphine 2 MG/ML VIAL SLOW IVP PRN (05:38)
[2022-05-23] MEDS: Rifaximin 550 MG TAB PO SCH ×4 (05:50→13:03)
[2022-05-23] MEDS: Aspirin 81 mg Enteric Coated Tablet PO SCH (09:18)
[2022-05-23] MEDS: Enoxaparin Sodium 40 MG/0.4 ML SYRINGE SC SCH (09:18)
[2022-05-23] MEDS: Dextrose 5 %-0.45 % NaCl 1,000 ML IV SCH (09:19)
[2022-05-23] MEDS: Nicotine 7 MG PATCH TD SCH (09:49)
[2022-05-24] MEDS: Dextrose 5 %-0.45 % NaCl 1,000 ML IV SCH ×2 (05:22→15:56)
[2022-05-24] MEDS: Aspirin 81 mg Enteric Coated Tablet PO SCH (08:27)
[2022-05-24] MEDS: Enoxaparin Sodium 40 MG/0.4 ML SYRINGE SC SCH (08:27)
[2022-05-24] MEDS: Amlodipine 5 MG TAB PO SCH (08:27)
[2022-05-24] MEDS: Rifaximin 550 MG TAB PO SCH ×2 (08:27→20:41)
[2022-05-24] MEDS: Nicotine 7 MG PATCH TD SCH (08:28)
[2022-05-24] MEDS: Morphine 2 MG/ML VIAL SLOW IVP PRN (16:56)
[2022-05-24] MEDS: Mirtazapine 15 MG TAB PO SCH (20:40)
[2022-05-25] MEDS: Dextrose 5 %-0.45 % NaCl 1,000 ML IV SCH (06:00)
[2022-05-25] MEDS ORDERED: Dextrose 5 %-0.45 % NaCl 1,000 ML ONE (06:04)
[2022-05-25] MEDS: Enoxaparin Sodium 40 MG/0.4 ML SYRINGE SC SCH (08:25)
[2022-05-25] MEDS: Nicotine 7 MG PATCH TD SCH (08:25)
[2022-05-25] MEDS: Aspirin 81 mg Enteric Coated Tablet PO SCH (08:25)
[2022-05-25] MEDS: Amlodipine 5 MG TAB PO SCH (08:26)
[2022-05-25] MEDS: Rifaximin 550 MG TAB PO SCH (08:26)
[2022-05-25 09:15] LABS: #Basophils 0.1 10x3/uL (0.0-0.2); #Eosinphils 0.1 10x3/uL (0.0-0.5); #Monocytes 1.9 10x3/uL (0.0-1.1); #Neutrophils 11.3 10x3/uL (1.5-8.4); %Basophils 0.3 % (0.0-2.0); %Eosinophils 0.6 % (0.0-6.0); %Lymphocytes 10.9 % (18.0-47.0); %Monocytes 12.2 % (0.0-10.0); %Neutrophils 74.4 % (40.0-75.0); Hemoglobin 14.1 g/dL (12.0-15.5); Mean Corpuscular HGB CONC 33.3 g/dL (32.0-36.0); Mean Corpuscular Hemoglobin 28.3 pg (27.0-33.0); Mean Platelet Volume 10.7 fl (7.4-10.4); Platelet Count 67 10x3/uL (150-450); RBC Distribution Width 19.4 % (11.5-14.5); Red Blood Cell (RBC) Count 4.99 10x6/uL (3.90-5.03); White Blood Cell (WBC) Count 15.2 10x3/uL (3.5-10.5)
[2022-05-25 09:31] LABS: Phosphorus 2.3 mg/dL (2.3-4.7)
[2022-05-25 09:35] LABS: ALT (SGPT) 61 U/L (8-55); AST (SGOT) 62 U/L (5-34); Albumin 2.1 g/dL (3.4-4.8); Alkaline Phosphatase 147 U/L (40-110); Anion Gap 11 mmol/L (10-20); BUN (Urea Nitrogen) 22 mg/dL (9.8-20.1); Bilirubin, Total 3.6 mg/dL (0.2-1.2); Calc. Creatinine Clearance 109 mL/min (70-130); Calcium 7.9 mg/dL (7.8-10.44); Carbon Dioxide 21 mmol/L (23-31); Chloride 112 mmol/L (98-107); Estimated GFR 92; Globulin 2.5 g/dL (2.4-3.5); Glucose 136 mg/dL (83-110); Magnesium 1.9 mg/dL (1.6-2.6); Potassium 3.8 mmol/L (3.5-5.1); Protein, Total 4.6 g/dL (5.8-8.1); Sodium 140 mmol/L (136-145)
[2022-05-25] MEDS: metroNIDAZOLE 500 MG in Premix Bag 1 BAG IVPB SCH ×2 (13:14→22:38)
[2022-05-25] MEDS ORDERED: Amino Acids 4.25 %/Dextrose 5% 2,000 ML IV SCH (17:00)
[2022-05-25] MEDS: Amino Acids 4.25 %/Dextrose 5% 2,000 ML IV SCH (18:23)
[2022-05-25 19:13] LABS: Bilirubin 1+ (Negative); Blood, Urine Negative (Negative); Clarity Clear (Clear); Glucose, Urine (Dipstick) Normal (Negative); Ketone, Urine Negative (Negative); Leukocyte Negative (Negative); Nitrite Negative (Negative); Protein, Urine (Dipstick) 30 mg/dl (Neg-Trace); Specific Gravity, Urine 1.015 (1.002-1.036); Urobilinogen 12 mg/dL (Less than 2)
[2022-05-25 19:18] LABS: Urine Culture Reflex No No
[2022-05-25 19:41] LABS: Bacteria/HPF 4+ HPF (None Seen); RBC/HPF None Seen HPF (0-3); Squamous Epithelial 0-3 HPF (0-3); WBC/HPF 0-3 HPF (0-3)
[2022-05-25] MEDS: Mirtazapine 15 MG TAB PO SCH (22:39)
[2022-05-26] MEDS: Rifaximin 550 MG TAB PO SCH ×3 (00:07→21:08)
[2022-05-26] MEDS: Ondansetron PF 4 MG/2 ML Vial IVP PRN ×2 (00:08→15:42)
[2022-05-26] MEDS: metroNIDAZOLE 500 MG in Premix Bag 1 BAG IVPB SCH ×3 (06:25→21:17)
[2022-05-26] MEDS ORDERED: Amino Acids 4.25 %/Dextrose 5% 2,000 ML BAG IV SCH (09:00)
[2022-05-26] MEDS: Amlodipine 5 MG TAB PO SCH (09:32)
[2022-05-26] MEDS: Nicotine 7 MG PATCH TD SCH (09:32)
[2022-05-26] MEDS: Aspirin 81 mg Enteric Coated Tablet PO SCH (09:32)
[2022-05-26] MEDS ORDERED: metroNIDAZOLE 500 MG/100 ML BAG ONE (15:14)
[2022-05-26] MEDS ORDERED: Prochlorperazine Maleate 5 MG TAB PO PRN (16:29)
[2022-05-26] MEDS ORDERED: Prochlorperazine Edisylate 5 MG, Admixture Fee 1 EACH in Sodium Chloride 0.9% 50 ML IVPB PRN (16:31)
[2022-05-26] MEDS: Amino Acids 4.25 %/Dextrose 5% 2,000 ML IV SCH (19:58)
[2022-05-26] MEDS: Mirtazapine 15 MG TAB PO SCH (21:04)
[2022-05-27] MEDS: metroNIDAZOLE 500 MG in Premix Bag 1 BAG IVPB SCH ×3 (05:12→21:18)
[2022-05-27] MEDS: Nicotine 7 MG PATCH TD SCH (09:10)
[2022-05-27] MEDS: Amlodipine 5 MG TAB PO SCH (09:10)
[2022-05-27] MEDS: Rifaximin 550 MG TAB PO SCH ×2 (09:11→21:29)
[2022-05-27] MEDS: Aspirin 81 mg Enteric Coated Tablet PO SCH (09:11)
[2022-05-27] MEDS ORDERED: metroNIDAZOLE 500 MG/100 ML BAG ONE ×2 (15:49→21:15)
[2022-05-27] MEDS ORDERED: VANCOMYCIN 1.75 GM/350 ML BAG 1.75 GM in Premix Bag 1 BAG IVPB SCH (17:00)
[2022-05-27] MEDS: Cefepime 2 GM in Sodium Chloride 0.9% 100 ML IVPB SCH (17:09)
[2022-05-27] MEDS: Amino Acids 4.25 %/Dextrose 5% 2,000 ML IV SCH (18:36)
[2022-05-27] MEDS ORDERED: Vancomycin 1 GM in Premix Bag 1 BAG IVPB SCH (21:00)
[2022-05-27] MEDS: Mirtazapine 15 MG TAB PO SCH (21:29)
[2022-05-28] MEDS: Cefepime 2 GM in Sodium Chloride 0.9% 100 ML IVPB SCH ×2 (04:25→17:36)
[2022-05-28] MEDS ORDERED: metroNIDAZOLE 500 MG/100 ML BAG ONE (06:33)
[2022-05-28] MEDS: metroNIDAZOLE 500 MG in Premix Bag 1 BAG IVPB SCH ×2 (06:39→15:21)
[2022-05-28] MEDS: Amlodipine 5 MG TAB PO SCH (10:39)
[2022-05-28] MEDS: Aspirin 81 mg Enteric Coated Tablet PO SCH (10:40)
[2022-05-28] MEDS: Rifaximin 550 MG TAB PO SCH ×2 (10:40→22:27)
[2022-05-28] MEDS ORDERED: Vancomycin HCl 1 GM in Sodium Chloride 0.9% 250 ML 250 ML IVPB SCH (11:00)
[2022-05-28 11:36] LABS: #Basophils 0.1 10x3/uL (0.0-0.2); #Eosinphils 0.2 10x3/uL (0.0-0.5); #Monocytes 1.6 10x3/uL (0.0-1.1); #Neutrophils 13.3 10x3/uL (1.5-8.4); %Basophils 0.5 % (0.0-2.0); %Eosinophils 1.3 % (0.0-6.0); %Lymphocytes 8.3 % (18.0-47.0); %Monocytes 9.5 % (0.0-10.0); %Neutrophils 78.2 % (40.0-75.0); Hemoglobin 14.7 g/dL (12.0-15.5); Mean Corpuscular HGB CONC 32.1 g/dL (32.0-36.0); Mean Corpuscular Hemoglobin 28.4 pg (27.0-33.0); Mean Corpuscular Volume 88.4 fl (81.6-98.3); Mean Platelet Volume 11.6 fl (7.4-10.4); Platelet Count 61 10x3/uL (150-450); RBC Distribution Width 21.5 % (11.5-14.5); Red Blood Cell (RBC) Count 5.18 10x6/uL (3.90-5.03)
[2022-05-28] MEDS: Nicotine 7 MG PATCH TD SCH (11:46)
[2022-05-28 12:04] LABS: Anion Gap 12 mmol/L (10-20); BUN (Urea Nitrogen) 39 mg/dL (9.8-20.1); Calc. Creatinine Clearance 94 mL/min (70-130); Calcium 7.9 mg/dL (7.8-10.44); Carbon Dioxide 12 mmol/L (23-31); Chloride 114 mmol/L (98-107); Estimated GFR 88; Glucose 130 mg/dL (83-110); Sodium 134 mmol/L (136-145)
[2022-05-28 12:05] LABS: Potassium 4.2 mmol/L (3.5-5.1)
[2022-05-28] MEDS: Amino Acids 4.25 %/Dextrose 5% 2,000 ML IV SCH (18:23)
[2022-05-28] MEDS ORDERED: Linezolid 600 MG in Premix Bag 1 BAG IVPB SCH (21:00)
[2022-05-28] MEDS ORDERED: Mirtazapine 15 MG TAB PO SCH (21:00)
[2022-05-28] MEDS ORDERED: Sodium Bicarbonate 150 MEQ in Dextrose 5% in Water 1,000 ML IV SCH (22:00)
[2022-05-29] MEDS: Rifaximin 550 MG TAB PO SCH ×3 (02:02→22:13)
[2022-05-29 04:17] LABS: #Basophils 0.1 10x3/uL (0.0-0.2); #Eosinphils 0.3 10x3/uL (0.0-0.5); #Monocytes 1.9 10x3/uL (0.0-1.1); #Neutrophils 13.3 10x3/uL (1.5-8.4); %Basophils 0.3 % (0.0-2.0); %Eosinophils 1.4 % (0.0-6.0); %Lymphocytes 9.2 % (18.0-47.0); %Monocytes 10.6 % (0.0-10.0); %Neutrophils 76.2 % (40.0-75.0); Hemoglobin 14.4 g/dL (12.0-15.5); Mean Corpuscular HGB CONC 33.5 g/dL (32.0-36.0); Mean Corpuscular Hemoglobin 28.7 pg (27.0-33.0); Mean Corpuscular Volume 85.7 fl (81.6-98.3); Mean Platelet Volume 10.6 fl (7.4-10.4); Platelet Count 68 10x3/uL (150-450); RBC Distribution Width 21.6 % (11.5-14.5); Red Blood Cell (RBC) Count 5.02 10x6/uL (3.90-5.03); White Blood Cell (WBC) Count 17.5 10x3/uL (3.5-10.5)
[2022-05-29 04:23] LABS: Anion Gap 12 mmol/L (10-20); BUN (Urea Nitrogen) 43 mg/dL (9.8-20.1); Calc. Creatinine Clearance 103 mL/min (70-130); Calcium 7.9 mg/dL (7.8-10.44); Carbon Dioxide 15 mmol/L (23-31); Chloride 112 mmol/L (98-107); Estimated GFR 91; Glucose 110 mg/dL (83-110); Potassium 3.6 mmol/L (3.5-5.1); Sodium 135 mmol/L (136-145)
[2022-05-29] MEDS: Cefepime 2 GM in Sodium Chloride 0.9% 100 ML IVPB SCH ×2 (06:04→17:28)
[2022-05-29] MEDS ORDERED: cefTRIAXone\\ROCEPHIN 1 GM in Sodium Chloride 0.9% 100 ML IVPB SCH (10:00)
[2022-05-29] MEDS: Nicotine 7 MG PATCH TD SCH (10:22)
[2022-05-29] MEDS: Aspirin 81 mg Enteric Coated Tablet PO SCH (10:23)
[2022-05-29] MEDS: Amlodipine 5 MG TAB PO SCH (10:27)
[2022-05-29] MEDS: Ondansetron PF 4 MG/2 ML Vial IVP PRN (10:58)
[2022-05-29] MEDS: Morphine 2 MG/ML VIAL SLOW IVP PRN (12:22)
[2022-05-29] MEDS: Vancomycin HCl 1 GM in Sodium Chloride 0.9% 250 ML 250 ML IVPB SCH (12:31)
[2022-05-29] MEDS: metroNIDAZOLE 500 MG in Premix Bag 1 BAG IVPB SCH ×2 (14:54→22:13)
[2022-05-30] MEDS: Cefepime 2 GM in Sodium Chloride 0.9% 100 ML IVPB SCH ×2 (04:20→04:23)
[2022-05-30] MEDS: metroNIDAZOLE 500 MG in Premix Bag 1 BAG IVPB SCH ×2 (05:29→06:00)
[2022-05-30 06:16] LABS: Vancomycin, Trough 13.9 ug/mL
[2022-05-30 06:20] LABS: Anion Gap 16 mmol/L (10-20); BUN (Urea Nitrogen) 55 mg/dL (9.8-20.1); Calc. Creatinine Clearance 77 mL/min (70-130); Calcium 8.3 mg/dL (7.8-10.44); Carbon Dioxide 10 mmol/L (23-31); Chloride 113 mmol/L (98-107); Estimated GFR 69; Glucose 131 mg/dL (83-110); Potassium 4.1 mmol/L (3.5-5.1); Sodium 135 mmol/L (136-145)
[2022-05-30 07:01] LABS: #Basophils 0.1 10x3/uL (0.0-0.2); #Eosinphils 0.1 10x3/uL (0.0-0.5); #Monocytes 1.3 10x3/uL (0.0-1.1); #Neutrophils 13.5 10x3/uL (1.5-8.4); %Basophils 0.3 % (0.0-2.0); %Eosinophils 0.7 % (0.0-6.0); %Lymphocytes 7.6 % (18.0-47.0); %Monocytes 7.8 % (0.0-10.0); %Neutrophils 82.3 % (40.0-75.0); Hemoglobin 14.2 g/dL (12.0-15.5); Mean Corpuscular HGB CONC 32.9 g/dL (32.0-36.0); Mean Corpuscular Hemoglobin 29.1 pg (27.0-33.0); Mean Corpuscular Volume 88.3 fl (81.6-98.3); Mean Platelet Volume 10.3 fl (7.4-10.4); Platelet Count 64 10x3/uL (150-450); RBC Distribution Width 22.6 % (11.5-14.5); Red Blood Cell (RBC) Count 4.88 10x6/uL (3.90-5.03); White Blood Cell (WBC) Count 16.4 10x3/uL (3.5-10.5)
[2022-05-30] MEDS: Vancomycin HCl 1 GM in Sodium Chloride 0.9% 250 ML 250 ML IVPB SCH (07:13)
[2022-05-30] MEDS ORDERED: Vancomycin HCl 1 GM in Sodium Chloride 0.9% 250 ML 250 ML IVPB SCH (08:00)
[2022-05-30] MEDS: Amlodipine 5 MG TAB PO SCH (09:17)
[2022-05-30] MEDS: Rifaximin 550 MG TAB PO SCH ×2 (09:17→20:28)
[2022-05-30] MEDS: Aspirin Chewable 81 MG TAB PO SCH (09:20)
[2022-05-30] MEDS: Nicotine 7 MG PATCH TD SCH (09:21)
[2022-05-30] MEDS: HumaLOG 300 UNITS/3 ML VIAL SC PRN (12:36)
[2022-05-30] MEDS ORDERED: Lactated Ringer's 500 ML IV SCH ×2 (13:45→15:15)
[2022-05-30] MEDS ORDERED: cefTRIAXone\\ROCEPHIN 1 GM in Sodium Chloride 0.9% 100 ML IVPB SCH (14:00)
[2022-05-30] MEDS ORDERED: Azithromycin 500 MG in Sodium Chloride 0.9% 250 ML 250 ML IVPB SCH (14:00)
[2022-05-30] MEDS ORDERED: Sodium Bicarbonate 150 MEQ in Dextrose 5% in Water 1,000 ML IV SCH ×2 (15:00→18:00)
[2022-05-30] MEDS: cefTRIAXone\\ROCEPHIN 1 GM in Sodium Chloride 0.9% 100 ML IVPB SCH (18:01)
[2022-05-31 05:52] LABS: #Eosinphils 0.2 10x3/uL (0.0-0.5); #Monocytes 1.2 10x3/uL (0.0-1.1); #Neutrophils 11.9 10x3/uL (1.5-8.4); %Basophils 0.2 % (0.0-2.0); %Eosinophils 1.1 % (0.0-6.0); %Lymphocytes 9.1 % (18.0-47.0); %Monocytes 8.3 % (0.0-10.0); %Neutrophils 80.2 % (40.0-75.0); Hemoglobin 12.6 g/dL (12.0-15.5); Mean Corpuscular HGB CONC 33.6 g/dL (32.0-36.0); Mean Corpuscular Hemoglobin 29.3 pg (27.0-33.0); Mean Corpuscular Volume 87.2 fl (81.6-98.3); Mean Platelet Volume 11.3 fl (7.4-10.4); Platelet Count 77 10x3/uL (150-450); RBC Distribution Width 22.2 % (11.5-14.5); White Blood Cell (WBC) Count 14.9 10x3/uL (3.5-10.5)
[2022-05-31 06:03] LABS: Anion Gap 13 mmol/L (10-20); BUN (Urea Nitrogen) 55 mg/dL (9.8-20.1); Calc. Creatinine Clearance 82 mL/min (70-130); Calcium 7.7 mg/dL (7.8-10.44); Carbon Dioxide 15 mmol/L (23-31); Chloride 112 mmol/L (98-107); Estimated GFR 75; Glucose 144 mg/dL (83-110); Potassium 3.5 mmol/L (3.5-5.1); Sodium 136 mmol/L (136-145)
[2022-05-31] MEDS ORDERED: Sodium Bicarbonate 150 MEQ in Dextrose 5% in Water 1,000 ML IV SCH (08:30)
[2022-05-31] MEDS: Azithromycin 250 MG TAB PO SCH (10:01)
[2022-05-31] MEDS: Rifaximin 550 MG TAB PO SCH (10:01)
[2022-05-31] MEDS: Nicotine 7 MG PATCH TD SCH (10:01)
[2022-05-31] MEDS: Aspirin Chewable 81 MG TAB PO SCH (10:01)
[2022-05-31] MEDS: Amlodipine 5 MG TAB PO SCH (17:24)
[2022-05-31] MEDS: cefTRIAXone\\ROCEPHIN 1 GM in Sodium Chloride 0.9% 100 ML IVPB SCH (17:32)
[2022-06-01 05:30] LABS: Mean Corpuscular HGB CONC 33.7 g/dL (32.0-36.0); Mean Corpuscular Hemoglobin 29.2 pg (27.0-33.0); Mean Corpuscular Volume 86.7 fl (81.6-98.3); Platelet Count 69 10x3/uL (150-450); RBC Distribution Width 22.5 % (11.5-14.5); Red Blood Cell (RBC) Count 4.45 10x6/uL (3.90-5.03); White Blood Cell (WBC) Count 18.1 10x3/uL (3.5-10.5)
[2022-06-01 05:45] LABS: Anion Gap 13 mmol/L (10-20); BUN (Urea Nitrogen) 54 mg/dL (9.8-20.1); Calc. Creatinine Clearance 82 mL/min (70-130); Calcium 8.3 mg/dL (7.8-10.44); Carbon Dioxide 21 mmol/L (23-31); Chloride 107 mmol/L (98-107); Estimated GFR 75; Glucose 101 mg/dL (83-110); Potassium 3.3 mmol/L (3.5-5.1); Sodium 138 mmol/L (136-145)
[2022-06-01 06:48] LABS: Platelet Morphology Comment Appears Decreased
[2022-06-01 06:54] LABS: #Basophils 0.1 10x3/uL (0.0-0.2); #Eosinphils 0.3 10x3/uL (0.0-0.5); #Monocytes 1.6 10x3/uL (0.0-1.1); #Neutrophils 14.4 10x3/uL (1.5-8.4); %Basophils 0.3 % (0.0-2.0); %Eosinophils 1.7 % (0.0-6.0); %Lymphocytes 8.4 % (18.0-47.0); %Monocytes 8.6 % (0.0-10.0); %Neutrophils 79.6 % (40.0-75.0)
[2022-06-01 06:56] LABS: Anisocytosis SLIGHT = 6-15 cells (100X) (0-5/hpf); Polychromasia SLIGHT = 2-3 cells (100X) (0-2/hpf)
[2022-06-01] MEDS ORDERED: Potassium Chloride 20 MEQ TAB PO SCH (09:00)
[2022-06-01] MEDS: Nicotine 7 MG PATCH TD SCH (09:41)
[2022-06-01] MEDS: Azithromycin 250 MG TAB PO SCH (09:42)
[2022-06-01] MEDS: Amlodipine 5 MG TAB PO SCH (09:42)
[2022-06-01] MEDS: Aspirin Chewable 81 MG TAB PO SCH (09:42)
[2022-06-01] MEDS: Albumin 25% 25 GM/100 ML BOT IVPB SCH ×2 (17:58→23:26)
[2022-06-01] MEDS: Cefepime 2 GM in Sodium Chloride 0.9% 100 ML IVPB SCH (20:08)
[2022-06-01] MEDS: Rifaximin 550 MG TAB PO SCH (20:09)
[2022-06-01] MEDS: Vancomycin HCl 1 GM in Sodium Chloride 0.9% 250 ML 250 ML IVPB SCH (21:10)
[2022-06-02] MEDS: Albumin 25% 25 GM/100 ML BOT IVPB SCH ×2 (06:00→18:12)
[2022-06-02 06:16] LABS: Anion Gap 12 mmol/L (10-20); BUN (Urea Nitrogen) 52 mg/dL (9.8-20.1); Calc. Creatinine Clearance 95 mL/min (70-130); Calcium 8.8 mg/dL (7.8-10.44); Carbon Dioxide 22 mmol/L (23-31); Chloride 110 mmol/L (98-107); Estimated GFR 89; Glucose 112 mg/dL (83-110); Potassium 3.4 mmol/L (3.5-5.1); Sodium 141 mmol/L (136-145)
[2022-06-02] MEDS: Nicotine 7 MG PATCH TD SCH (08:55)
[2022-06-02] MEDS: Rifaximin 550 MG TAB PO SCH (09:57)
[2022-06-02] MEDS: Azithromycin 250 MG TAB PO SCH (09:58)
[2022-06-02] MEDS: Cefepime 2 GM in Sodium Chloride 0.9% 100 ML IVPB SCH (09:58)
[2022-06-02] MEDS: Aspirin Chewable 81 MG TAB PO SCH (09:58)
[2022-06-02] MEDS: Amlodipine 5 MG TAB PO SCH (09:58)
[2022-06-02] MEDS: Vancomycin HCl 1 GM in Sodium Chloride 0.9% 250 ML 250 ML IVPB SCH (09:59)
[2022-06-02 10:13] LABS: Hemoglobin 9.9 g/dL (12.0-15.5); Mean Corpuscular HGB CONC 33.7 g/dL (32.0-36.0); Mean Corpuscular Hemoglobin 29.1 pg (27.0-33.0); Mean Corpuscular Volume 86.5 fl (81.6-98.3); Mean Platelet Volume 11.6 fl (7.4-10.4); Platelet Count 55 10x3/uL (150-450); RBC Distribution Width 22.7 % (11.5-14.5); White Blood Cell (WBC) Count 9.4 10x3/uL (3.5-10.5)
[2022-06-02 10:31] LABS: #Eosinphils 0.2 10x3/uL (0.0-0.5); #Monocytes 0.8 10x3/uL (0.0-1.1); #Neutrophils 7.1 10x3/uL (1.5-8.4); %Basophils 0.1 % (0.0-2.0); %Lymphocytes 13.2 % (18.0-47.0); %Monocytes 8.4 % (0.0-10.0); %Neutrophils 75.4 % (40.0-75.0)
[2022-06-02] MEDS ORDERED: Ondansetron PF 4 MG/2 ML Vial IVP PRN (10:40)
[2022-06-02] MEDS ORDERED: Albumin 25% 25 GM/100 ML BOT IVPB SCH (17:00)
[2022-06-02] MEDS ORDERED: Electrolyte Replacement Protocol 1 EACH FS SCH (19:45)
[2022-06-02] MEDS ORDERED: Electrolyte Replacement Protocol FS PRN (20:15)
[2022-06-02] MEDS ORDERED: Magnesium 2 GM/50 ML(in water) 2 GM in Premix Bag 1 BAG IVPB SCH (21:00)
[2022-06-02] MEDS ORDERED: Enoxaparin Sodium 40 MG/0.4 ML SYRINGE SC SCH (21:00)
[2022-06-02] MEDS ORDERED: Potassium Chloride 20 MEQ TAB PO SCH (21:00)
[2022-06-02 21:01] LABS: Phosphorus 2.4 mg/dL (2.3-4.7)
[2022-06-02] MEDS: Linezolid 600 MG in Premix Bag 1 BAG IVPB SCH (22:59)
[2022-06-03 04:56] LABS: #Eosinphils 0.2 10x3/uL (0.0-0.5); #Monocytes 0.7 10x3/uL (0.0-1.1); #Neutrophils 5.9 10x3/uL (1.5-8.4); %Basophils 0.1 % (0.0-2.0); %Eosinophils 2.3 % (0.0-6.0); %Lymphocytes 15.6 % (18.0-47.0); %Monocytes 8.6 % (0.0-10.0); %Neutrophils 72.2 % (40.0-75.0); Hemoglobin 8.8 g/dL (12.0-15.5); Mean Corpuscular HGB CONC 33.1 g/dL (32.0-36.0); Mean Corpuscular Hemoglobin 29.6 pg (27.0-33.0); Mean Corpuscular Volume 89.6 fl (81.6-98.3); Mean Platelet Volume 10.1 fl (7.4-10.4); Platelet Count 48 10x3/uL (150-450); RBC Distribution Width 23.2 % (11.5-14.5); Red Blood Cell (RBC) Count 2.97 10x6/uL (3.90-5.03); White Blood Cell (WBC) Count 8.2 10x3/uL (3.5-10.5)
[2022-06-03 05:14] LABS: Magnesium 2.7 mg/dL (1.6-2.6); Phosphorus 2.2 mg/dL (2.3-4.7)
[2022-06-03] MEDS: Rifaximin 550 MG TAB PO SCH ×3 (06:53→23:36)
[2022-06-03] MEDS ORDERED: Haloperidol Lactate 5 MG/ML VIAL SLOW IVP SCH (11:00)
[2022-06-03] MEDS: Linezolid 600 MG in Premix Bag 1 BAG IVPB SCH ×2 (11:25→23:35)
[2022-06-03] MEDS: Aspirin Chewable 81 MG TAB PO SCH (11:26)
[2022-06-03] MEDS: Amlodipine 5 MG TAB PO SCH (11:27)
[2022-06-03] MEDS: Nicotine 7 MG PATCH TD SCH (11:52)
[2022-06-03 11:59] LABS: ALT (SGPT) 23 U/L (8-55); AST (SGOT) 43 U/L (5-34); Albumin 2.8 g/dL (3.4-4.8); Alkaline Phosphatase 71 U/L (40-110); Anion Gap 14 mmol/L (10-20); BUN (Urea Nitrogen) 43 mg/dL (9.8-20.1); Bilirubin, Total 3.4 mg/dL (0.2-1.2); Calc. Creatinine Clearance 104 mL/min (70-130); Carbon Dioxide 19 mmol/L (23-31); Chloride 110 mmol/L (98-107); Estimated GFR 91; Globulin 1.5 g/dL (2.4-3.5); Glucose 121 mg/dL (83-110); Potassium 3.7 mmol/L (3.5-5.1); Protein, Total 4.3 g/dL (5.8-8.1); Sodium 139 mmol/L (136-145)
[2022-06-03] MEDS: Acetaminophen 325 MG TAB PO PRN (14:16)
[2022-06-03] MEDS: Haloperidol Lactate 5 MG/ML VIAL SLOW IVP SCH (21:43)
[2022-06-04 05:24] LABS: ALT (SGPT) 21 U/L (8-55); AST (SGOT) 31 U/L (5-34); Albumin 2.5 g/dL (3.4-4.8); Alkaline Phosphatase 77 U/L (40-110); Anion Gap 10 mmol/L (10-20); BUN (Urea Nitrogen) 41 mg/dL (9.8-20.1); Bilirubin, Total 3.2 mg/dL (0.2-1.2); Calc. Creatinine Clearance 100 mL/min (70-130); Calcium 8.6 mg/dL (7.8-10.44); Carbon Dioxide 23 mmol/L (23-31); Chloride 113 mmol/L (98-107); Estimated GFR 90; Globulin 1.5 g/dL (2.4-3.5); Glucose 139 mg/dL (83-110); Potassium 3.3 mmol/L (3.5-5.1); Sodium 143 mmol/L (136-145)
[2022-06-04 05:26] LABS: #Eosinphils 0.2 10x3/uL (0.0-0.5); #Monocytes 0.7 10x3/uL (0.0-1.1); #Neutrophils 5.8 10x3/uL (1.5-8.4); %Basophils 0.1 % (0.0-2.0); %Eosinophils 2.6 % (0.0-6.0); %Lymphocytes 14.7 % (18.0-47.0); %Monocytes 8.3 % (0.0-10.0); %Neutrophils 73.4 % (40.0-75.0); Hemoglobin 9.3 g/dL (12.0-15.5); Mean Corpuscular HGB CONC 33.2 g/dL (32.0-36.0); Mean Corpuscular Hemoglobin 29.7 pg (27.0-33.0); Mean Corpuscular Volume 89.5 fl (81.6-98.3); Mean Platelet Volume 10.3 fl (7.4-10.4); Platelet Count 59 10x3/uL (150-450); RBC Distribution Width 24.7 % (11.5-14.5); Red Blood Cell (RBC) Count 3.13 10x6/uL (3.90-5.03)
[2022-06-04] MEDS ORDERED: Potassium Chloride 20 MEQ TAB PO SCH ×2 (08:00→11:00)
[2022-06-04] MEDS ORDERED: Electrolyte Replacement Protocol 1 EACH FS PRN (09:15)
[2022-06-04] MEDS ORDERED: Lactated Ringer's 1,000 ML IV SCH (09:30)
[2022-06-04] MEDS: Aspirin Chewable 81 MG TAB PO SCH (12:28)
[2022-06-04] MEDS: Haloperidol Lactate 5 MG/ML VIAL SLOW IVP SCH ×2 (12:28→21:28)
[2022-06-04] MEDS: Rifaximin 550 MG TAB PO SCH ×3 (12:29→21:35)
[2022-06-04] MEDS: Linezolid 600 MG in Premix Bag 1 BAG IVPB SCH ×2 (12:30→21:26)
[2022-06-04 17:13] LABS: Potassium 3.4 mmol/L (3.5-5.1)
[2022-06-04] MEDS: Nicotine 7 MG PATCH TD SCH (18:14)
[2022-06-04] MEDS: Potassium Chloride 20 MEQ in Premix Bag 1 BAG IVPB SCH ×2 (19:09→21:26)
[2022-06-05 05:31] LABS: #Eosinphils 0.2 10x3/uL (0.0-0.5); #Monocytes 0.5 10x3/uL (0.0-1.1); #Neutrophils 5.7 10x3/uL (1.5-8.4); %Basophils 0.1 % (0.0-2.0); %Eosinophils 2.7 % (0.0-6.0); %Lymphocytes 19.2 % (18.0-47.0); %Monocytes 6.7 % (0.0-10.0); %Neutrophils 70.7 % (40.0-75.0); Hemoglobin 9.3 g/dL (12.0-15.5); Mean Corpuscular HGB CONC 31.8 g/dL (32.0-36.0); Mean Corpuscular Hemoglobin 29.4 pg (27.0-33.0); Mean Corpuscular Volume 92.4 fl (81.6-98.3); Mean Platelet Volume 10.2 fl (7.4-10.4); Platelet Count 70 10x3/uL (150-450); Red Blood Cell (RBC) Count 3.16 10x6/uL (3.90-5.03)
[2022-06-05 05:39] LABS: ALT (SGPT) 22 U/L (8-55); AST (SGOT) 33 U/L (5-34); Albumin 2.5 g/dL (3.4-4.8); Alkaline Phosphatase 86 U/L (40-110); Anion Gap 11 mmol/L (10-20); BUN (Urea Nitrogen) 39 mg/dL (9.8-20.1); Calc. Creatinine Clearance 89 mL/min (70-130); Calcium 8.8 mg/dL (7.8-10.44); Carbon Dioxide 23 mmol/L (23-31); Chloride 112 mmol/L (98-107); Estimated GFR 82; Globulin 1.7 g/dL (2.4-3.5); Glucose 219 mg/dL (83-110); Potassium 4.3 mmol/L (3.5-5.1); Protein, Total 4.2 g/dL (5.8-8.1); Sodium 142 mmol/L (136-145)
[2022-06-05] MEDS: Aspirin Chewable 81 MG TAB PO SCH (10:50)
[2022-06-05] MEDS: Rifaximin 550 MG TAB PO SCH ×2 (10:50→20:56)
[2022-06-05] MEDS: Linezolid 600 MG in Premix Bag 1 BAG IVPB SCH ×2 (10:51→20:57)
[2022-06-05] MEDS: Nicotine 7 MG PATCH TD SCH (10:51)
[2022-06-05] MEDS: Haloperidol Lactate 5 MG/ML VIAL SLOW IVP SCH ×2 (10:51→20:57)
[2022-06-06 04:57] LABS: #Eosinphils 0.2 10x3/uL (0.0-0.5); #Monocytes 0.7 10x3/uL (0.0-1.1); #Neutrophils 5.7 10x3/uL (1.5-8.4); %Basophils 0.1 % (0.0-2.0); %Eosinophils 2.5 % (0.0-6.0); %Lymphocytes 18.5 % (18.0-47.0); %Monocytes 8.1 % (0.0-10.0); %Neutrophils 70.3 % (40.0-75.0); Hemoglobin 9.7 g/dL (12.0-15.5); Mean Corpuscular HGB CONC 32.8 g/dL (32.0-36.0); Mean Corpuscular Hemoglobin 29.8 pg (27.0-33.0); Mean Corpuscular Volume 91.1 fl (81.6-98.3); Mean Platelet Volume 10.5 fl (7.4-10.4); Platelet Count 82 10x3/uL (150-450); RBC Distribution Width 25.7 % (11.5-14.5); Red Blood Cell (RBC) Count 3.25 10x6/uL (3.90-5.03); White Blood Cell (WBC) Count 8.1 10x3/uL (3.5-10.5)
[2022-06-06 05:20] LABS: Chloride 113 mmol/L (98-107); Potassium 4.2 mmol/L (3.5-5.1); Sodium 143 mmol/L (136-145)
[2022-06-06 05:24] LABS: Anion Gap 11 mmol/L (10-20)
[2022-06-06 05:25] LABS: ALT (SGPT) 21 U/L (8-55); AST (SGOT) 31 U/L (5-34); Albumin 2.3 g/dL (3.4-4.8); Alkaline Phosphatase 91 U/L (40-110); BUN (Urea Nitrogen) 36 mg/dL (9.8-20.1); Bilirubin, Total 2.8 mg/dL (0.2-1.2); Calc. Creatinine Clearance 97 mL/min (70-130); Calcium 9.1 mg/dL (7.8-10.44); Carbon Dioxide 23 mmol/L (23-31); Estimated GFR 89; Globulin 1.9 g/dL (2.4-3.5); Glucose 156 mg/dL (83-110); Protein, Total 4.2 g/dL (5.8-8.1)
[2022-06-06] MEDS: Haloperidol Lactate 5 MG/ML VIAL SLOW IVP SCH ×2 (09:19→20:25)
[2022-06-06] MEDS: Linezolid 600 MG in Premix Bag 1 BAG IVPB SCH ×2 (09:19→20:25)
[2022-06-06] MEDS: Rifaximin 550 MG TAB PO SCH ×2 (09:20→20:25)
[2022-06-06] MEDS: Aspirin Chewable 81 MG TAB PO SCH (09:20)
[2022-06-06] MEDS: Nicotine 7 MG PATCH TD SCH (09:20)
[2022-06-06] MEDS ORDERED: Morphine 2 MG/ML VIAL SLOW IVP SCH (15:15)
[2022-06-07 05:17] LABS: ALT (SGPT) 27 U/L (8-55); Albumin 2.3 g/dL (3.4-4.8); Alkaline Phosphatase 87 U/L (40-110); Anion Gap 12 mmol/L (10-20); BUN (Urea Nitrogen) 33 mg/dL (9.8-20.1); Bilirubin, Total 3.3 mg/dL (0.2-1.2); Calc. Creatinine Clearance 104 mL/min (70-130); Calcium 9.1 mg/dL (7.8-10.44); Carbon Dioxide 22 mmol/L (23-31); Chloride 112 mmol/L (98-107); Estimated GFR 91; Globulin 2.2 g/dL (2.4-3.5); Glucose 118 mg/dL (83-110); Potassium 4.8 mmol/L (3.5-5.1); Protein, Total 4.5 g/dL (5.8-8.1); Sodium 141 mmol/L (136-145)
[2022-06-07 05:29] LABS: AST (SGOT) 52 U/L (5-34)
[2022-06-07] MEDS: Linezolid 600 MG in Premix Bag 1 BAG IVPB SCH ×2 (09:02→20:20)
[2022-06-07] MEDS: Haloperidol Lactate 5 MG/ML VIAL SLOW IVP SCH (09:04)
[2022-06-07] MEDS: Rifaximin 550 MG TAB PO SCH ×2 (09:06→20:21)
[2022-06-07] MEDS: Aspirin Chewable 81 MG TAB PO SCH (09:06)
[2022-06-07] MEDS: Nicotine 7 MG PATCH TD SCH (09:06)
[2022-06-07] MEDS ORDERED: Bumetanide 1 MG/4 ML VIAL IVP SCH (11:00)
[2022-06-07] MEDS ORDERED: Spironolactone 25 MG TAB PO SCH (11:00)
[2022-06-07] MEDS: Albumin 25% 25 GM/100 ML BOT IVPB SCH ×3 (11:59→23:54)
[2022-06-07] MEDS: Bumetanide 1 MG/4 ML VIAL IVP SCH (17:08)
[2022-06-07] MEDS: Acetaminophen 325 MG TAB PO PRN (17:24)
[2022-06-08 03:49] LABS: ALT (SGPT) 22 U/L (8-55); AST (SGOT) 31 U/L (5-34); Albumin 3.2 g/dL (3.4-4.8); Alkaline Phosphatase 68 U/L (40-110); Anion Gap 13 mmol/L (10-20); BUN (Urea Nitrogen) 30 mg/dL (9.8-20.1); Bilirubin, Total 3.8 mg/dL (0.2-1.2); Calc. Creatinine Clearance 103 mL/min (70-130); Calcium 9.1 mg/dL (7.8-10.44); Carbon Dioxide 24 mmol/L (23-31); Chloride 110 mmol/L (98-107); Estimated GFR 91; Globulin 1.4 g/dL (2.4-3.5); Glucose 100 mg/dL (83-110); Potassium 3.3 mmol/L (3.5-5.1); Protein, Total 4.6 g/dL (5.8-8.1); Sodium 144 mmol/L (136-145)
[2022-06-08] MEDS: Bumetanide 1 MG/4 ML VIAL IVP SCH ×2 (05:29→15:39)
[2022-06-08] MEDS: Albumin 25% 25 GM/100 ML BOT IVPB SCH (05:29)
[2022-06-08] MEDS ORDERED: Potassium Chloride 20 MEQ TAB PO SCH (06:00)
[2022-06-08] MEDS: Nicotine 7 MG PATCH TD SCH (08:25)
[2022-06-08] MEDS: Aspirin Chewable 81 MG TAB PO SCH (08:31)
[2022-06-08] MEDS: Spironolactone 25 MG TAB PO SCH (08:31)
[2022-06-08] MEDS: Rifaximin 550 MG TAB PO SCH ×2 (08:31→21:07)
[2022-06-09] MEDS: Bumetanide 1 MG/4 ML VIAL IVP SCH ×2 (06:12→15:39)
[2022-06-09] MEDS: Rifaximin 550 MG TAB PO SCH ×2 (08:55→22:33)
[2022-06-09] MEDS: Nicotine 7 MG PATCH TD SCH (08:55)
[2022-06-09] MEDS: Aspirin Chewable 81 MG TAB PO SCH (08:55)
[2022-06-09] MEDS: Spironolactone 25 MG TAB PO SCH (08:55)
[2022-06-09 10:23] LABS: Platelet Count 49 10x3/uL (150-450)
[2022-06-09 10:42] LABS: Anion Gap 13 mmol/L (10-20); BUN (Urea Nitrogen) 29 mg/dL (9.8-20.1); Calc. Creatinine Clearance 103 mL/min (70-130); Calcium 8.9 mg/dL (7.8-10.44); Carbon Dioxide 28 mmol/L (23-31); Chloride 104 mmol/L (98-107); Estimated GFR 91; Glucose 137 mg/dL (83-110); Magnesium 1.3 mg/dL (1.6-2.6); Phosphorus 2.5 mg/dL (2.3-4.7); Potassium 3.2 mmol/L (3.5-5.1); Sodium 142 mmol/L (136-145)
[2022-06-09] MEDS: Potassium Chloride 20 MEQ in Premix Bag 1 BAG IVPB SCH ×2 (15:39→17:32)
[2022-06-09 20:29] LABS: Potassium 3.8 mmol/L (3.5-5.1)
[2022-06-10 04:39] LABS: #Eosinphils 0.1 10x3/uL (0.0-0.5); #Monocytes 0.4 10x3/uL (0.0-1.1); #Neutrophils 3.8 10x3/uL (1.5-8.4); %Eosinophils 1.4 % (0.0-6.0); %Lymphocytes 24.5 % (18.0-47.0); %Monocytes 6.8 % (0.0-10.0); %Neutrophils 67.1 % (40.0-75.0); Hemoglobin 7.9 g/dL (12.0-15.5); Mean Corpuscular HGB CONC 32.9 g/dL (32.0-36.0); Mean Corpuscular Hemoglobin 29.9 pg (27.0-33.0); Mean Corpuscular Volume 90.9 fl (81.6-98.3); Mean Platelet Volume 9.8 fl (7.4-10.4); Platelet Count 43 10x3/uL (150-450); RBC Distribution Width 24.4 % (11.5-14.5); Red Blood Cell (RBC) Count 2.64 10x6/uL (3.90-5.03); White Blood Cell (WBC) Count 5.6 10x3/uL (3.5-10.5)
[2022-06-10 05:06] LABS: ALT (SGPT) 27 U/L (8-55); AST (SGOT) 41 U/L (5-34); Albumin 2.9 g/dL (3.4-4.8); Alkaline Phosphatase 75 U/L (40-110); Anion Gap 14 mmol/L (10-20); BUN (Urea Nitrogen) 34 mg/dL (9.8-20.1); Bilirubin, Total 4.9 mg/dL (0.2-1.2); Calc. Creatinine Clearance 108 mL/min (70-130); Calcium 8.8 mg/dL (7.8-10.44); Carbon Dioxide 26 mmol/L (23-31); Chloride 107 mmol/L (98-107); Estimated GFR 92; Globulin 1.5 g/dL (2.4-3.5); Glucose 111 mg/dL (83-110); Magnesium 1.3 mg/dL (1.6-2.6); Potassium 3.5 mmol/L (3.5-5.1); Protein, Total 4.4 g/dL (5.8-8.1); Sodium 143 mmol/L (136-145)
[2022-06-10] MEDS ORDERED: Potassium Chloride 20 MEQ TAB PO SCH (05:15)
[2022-06-10] MEDS: Potassium Chloride 20 MEQ in Premix Bag 1 BAG IVPB SCH ×2 (05:57→10:13)
[2022-06-10] MEDS ORDERED: Magnesium 2 GM/50 ML(in water) 2 GM in Premix Bag 1 BAG IVPB SCH (06:00)
[2022-06-10] MEDS: Bumetanide 1 MG/4 ML VIAL IVP SCH ×2 (07:40→15:21)
[2022-06-10] MEDS ORDERED: Pantoprazole 40 MG VIAL IVP SCH (09:00)
[2022-06-10] MEDS: Spironolactone 25 MG TAB PO SCH (10:14)
[2022-06-10] MEDS: Aspirin Chewable 81 MG TAB PO SCH (10:14)
[2022-06-10] MEDS: Rifaximin 550 MG TAB PO SCH ×2 (10:15→21:56)
[2022-06-10 14:26] LABS: Potassium 4.2 mmol/L (3.5-5.1)
[2022-06-10] MEDS: Nicotine 7 MG PATCH TD SCH (15:15)
[2022-06-10 15:19] LABS: SARS-CoV-2 NAA Rapid Test DETECTED (NotDetected)
[2022-06-11] MEDS ORDERED: Polyvinyl Alcohol 1.4%/Povidone 0.6% Opth Drops EA EYE PRN (02:50)
[2022-06-11] MEDS: Bumetanide 1 MG/4 ML VIAL IVP SCH (05:12)
[2022-06-11 05:13] LABS: Magnesium 1.7 mg/dL (1.6-2.6)
[2022-06-11] MEDS ORDERED: Magnesium 2 GM/50 ML(in water) 2 GM in Premix Bag 1 BAG IVPB SCH (06:00)
[2022-06-11] MEDS: Spironolactone 25 MG TAB PO SCH (10:18)
[2022-06-11] MEDS: Aspirin Chewable 81 MG TAB PO SCH (10:19)
[2022-06-11] MEDS: Rifaximin 550 MG TAB PO SCH (10:19)
[2022-06-11] MEDS: Nicotine 7 MG PATCH TD SCH (10:20)
[2022-06-11 12:46] VITALS: BP 136/67; TEMP 98.7
== END 2022-06-11 12:30 | disposition short-term general hospital (02) | DRG 177 ==
LOC: CSHERS 07:16 → CSHTELE 10:28 → CSHICU 05-13 06:40 → CSHTELE 05-14 14:44
PROVIDERS: ADMIT Internal Medicine; ATTEND Family Medicine
PROC: 3E0333Z Introduction of Anti-inflammatory into Peripheral Vein, Percutaneous Approach (ICD-10-PCS; principal; 2022-05-12)
PROC: 8E0ZXY6 Isolation (ICD-10-PCS; 2022-05-12)
PROC: 30233J1 Transfusion of Nonautologous Serum Albumin into Peripheral Vein, Percutaneous Approach (ICD-10-PCS; 2022-06-01)
DX: U07.1 COVID-19 (principal); K72.00 Acute and subacute hepatic failure without coma; G93.41 Metabolic encephalopathy; J18.9 Pneumonia, unspecified organism; E87.0 Hyperosmolality and hypernatremia; K76.6 Portal hypertension; E87.2 Acidosis; N39.0 Urinary tract infection, site not specified; Z16.24 Resistance to multiple antibiotics; J44.0 Chronic obstructive pulmonary disease with (acute) lower respiratory infection; E03.9 Hypothyroidism, unspecified; I10 Essential (primary) hypertension; F03.90 Unspecified dementia, unspecified severity, without behavioral disturbance, psychotic disturbance, mood disturbance, and anxiety; F17.210 Nicotine dependence, cigarettes, uncomplicated; K74.60 Unspecified cirrhosis of liver; M81.0 Age-related osteoporosis without current pathological fracture; M19.90 Unspecified osteoarthritis, unspecified site; F41.9 Anxiety disorder, unspecified; E87.6 Hypokalemia; E83.51 Hypocalcemia; G89.29 Other chronic pain; F31.9 Bipolar disorder, unspecified; Z88.5 Allergy status to narcotic agent; Z88.0 Allergy status to penicillin; Z88.8 Allergy status to other drugs, medicaments and biological substances; Z79.82 Long term (current) use of aspirin; Z79.899 Other long term (current) drug therapy; Z90.49 Acquired absence of other specified parts of digestive tract; Z90.710 Acquired absence of both cervix and uterus; D69.6 Thrombocytopenia, unspecified; D64.9 Anemia, unspecified
CPT/HCPCS: 36415; 36416; 70450; 71045; 71250; 71275; 74177; 80048; 80053; 80202; 81001; 81003; 81015; 82140; 82550; 82728; 83605; 83615; 83690; 83735; 83880; 84100; 84145; 84295; 84439; 84443; 84484; 85014; 85018; 85025; 85027; 85049; 85379; 85610; 85730; 86140; 87040; 87077; 87086; 87149; 87186; 87324; 87449; 93005; 93010; 94760; 96361; 96365; 96366; 96367; 96375; 97139; C9113; J0360; J0692; J0696; J0780; J1100; J1200; J1630; J1650; J1815; J1956; J2020; J2270; J2405; J2920; J3370; J3475; J3480; J3486; J3490; J7042; J7050; J7070; J7120; P9047; Q9967; S0028; U0002